=== PATIENT | female | born 1965 | race Caucasian/White ===

== ENCOUNTER → 2017-12-08 | Outpatient (CLI) | payer OTHER, MEDICAID ==
[~2017-12-08] MED LIST: BENZ2TAB58 PO; CABE0.5T2 PO; CARBXR400 PO; FLUP10 PO; LEVO75TA4 PO; LITH600 PO; RAME8TAB8 PO
[2017-12-08 15:53] LABS: BASOPHILS % (AUTO) 1.1 % (0.0-2.0); EOSINOPHILS % (AUTO) 0.6 % (1.0-6.0); HEMATOCRIT 38.6 % (36-46); HEMOGLOBIN 13.1 g/dL (12.0-16.0); LYMPHOCYTES # (AUTO) 0.9 K/uL (1.0-4.8); LYMPHOCYTES % (AUTO) 18.2 % (22.0-44.0); MEAN CORPUSCULAR HEMOGLOBIN 31.9 pg (26.0-34.0); MEAN CORPUSCULAR VOLUME 94 fL (80-100); MONOCYTES # (AUTO) 0.4 K/uL (0.1-1.0); MONOCYTES % (AUTO) 8.5 % (2.0-9.0); NEUTROPHILS # (AUTO) 3.6 K/uL (1.8-7.7); NEUTROPHILS % (AUTO) 71.6 % (40.0-70.0); PLATELET COUNT (AUTO) 297 K/uL (150-450); RED BLOOD CELL COUNT(AUTO) 4.11 MIL/uL (4.00-5.20); RED CELL DISTRIBUTION WIDTH 13.2 % (11.5-14.5)
[2017-12-08 16:01] LABS: HEMOGLOBIN A1C 4.9 % (4.5-6.2)
[2017-12-08 16:02] LABS: LITHIUM 0.73 mmol/L (0.60-1.20)
[2017-12-08 16:24] LABS: ALANINE AMINOTRANSFERASE 16 U/L (12-78); ALBUMIN 3.9 g/dL (3.4-5.0); ALKALINE PHOSPHATASE 157 U/L (46-116); ASPARTATE AMINOTRANSFERASE 13 U/L (15-37); BILIRUBIN,TOTAL 0.4 mg/dL (0.1-1.0); CALCIUM, TOTAL 9.2 mg/dL (8.8-10.5); CARBAMAZEPINE (TEGRETOL) 6.3 mcg/mL (4.0-12.0); CHLORIDE 108 mmol/L (98-107); CHOL/HDL RATIO 2.9 (3.9-5.7); CHOLESTEROL 205 mg/dL (131-200); CREATININE 0.63 mg/dL (0.60-1.30); GLOMERULAR FILTR. RATE CALC > 60 mL/min (>60); GLUCOSE,RANDOM 87 mg/dL (70-110); HDL CHOLESTEROL 70 mg/dL (40-60); LDL CHOL (CALC.) 121 mg/dL (0-130); POTASSIUM 4.7 mmol/L (3.5-5.1); SODIUM SERUM 142 mmol/L (136-145); THYROID STIMULATING HORMONE 1.15 uIU/mL (0.36-3.74); TOTAL PROTEIN, SERUM 6.7 g/dL (6.4-8.2); TRIGLYCERIDES 72 mg/dL (15-150); UREA NITROGEN, BLOOD 7 mg/dL (7-18)
[2017-12-08 16:32] LABS: ANION GAP 7 mmol/L (8-16); CARBON DIOXIDE 27 mmol/L (22-29)
== END | disposition home or self-care (01) ==
LOC: LABMN 09:45
PROVIDERS: ATTEND Psychiatry & Neurology Psychiatry
DX: F25.9 Schizoaffective disorder, unspecified (principal)
CPT/HCPCS: 83036; 84443

== ENCOUNTER → 2017-12-10 | Outpatient (CLI) | payer OTHER, MEDICAID ==
[2017-12-15 15:11] LABS: APPEARANCE,URINE CLEAR (CLEAR); BILIRUBIN,URINE NEGATIVE (NEGATIVE); GLUCOSE, URINE (UA) NEGATIVE (NEGATIVE); KETONES,URINE NEGATIVE (NEGATIVE); OCCULT BLOOD,URINE NEGATIVE (NEGATIVE); PROTEIN,URINE NEGATIVE (NEGATIVE); UROBILINOGEN,URINE 0.2 mg/dL (<=1.0)
[2017-12-15 15:12] LABS: BACTERIA,URINE None Seen /HPF (None Seen); LEUKOCYTE ESTERASE ,URINE SMALL (NEGATIVE); NITRATE,URINE NEGATIVE (NEGATIVE); RBC,URINE None Seen /HPF (0-2); SQUAMOUS EPITHELIAL CELL,UR Rare /LPF (None Seen); WBC,URINE 0-2 /HPF (0-5)
== END | disposition home or self-care (01) ==
LOC: LABMN 11:00
PROVIDERS: ATTEND Psychiatry & Neurology Psychiatry
DX: F25.9 Schizoaffective disorder, unspecified (principal)

== ENCOUNTER → 2018-02-22 | Outpatient (CLI) | payer MEDICARE, MEDICAID | END | disposition home or self-care (01) | LOC: RADPV 14:03 | PROVIDERS: ATTEND Internal Medicine | DX: S92.422A Displaced fracture of distal phalanx of left great toe, initial encounter for closed fracture (principal); M79.89 Other specified soft tissue disorders; X58.XXXA Exposure to other specified factors, initial encounter; Y93.89 Activity, other specified; Y92.89 Other specified places as the place of occurrence of the external cause; Y99.8 Other external cause status ==

== ENCOUNTER → 2018-04-07 | Outpatient (CLI) | payer MEDICARE, MEDICAID | END | disposition home or self-care (01) | LOC: LABMN 11:50 | PROVIDERS: ATTEND Internal Medicine | DX: F25.0 Schizoaffective disorder, bipolar type (principal) | CPT/HCPCS: 80074; 86706; 86708 ==

== ENCOUNTER 2018-05-28 09:20 | Emergency (ER) | payer MEDICARE, MEDICAID ==
[~2018-05-28] VITALS: Ht 170.2 cm; Wt 72.7 kg
[2018-05-28] MEDS ORDERED: METO25 PO (09:41)
[2018-05-28] MEDS ORDERED: LORazepam 1 MG TABLET PO ONE (10:00)
[2018-05-28 12:37] VITALS: BP 136/80
== END 2018-05-28 12:37 | disposition home or self-care (01) ==
LOC: EMS 09:20
DX: F41.9 Anxiety disorder, unspecified (principal); F31.9 Bipolar disorder, unspecified; F20.9 Schizophrenia, unspecified; Z79.899 Other long term (current) drug therapy; Z88.8 Allergy status to other drugs, medicaments and biological substances

== ENCOUNTER 2018-09-11 14:17 | Emergency (ER) | payer MEDICARE, MEDICAID ==
[~2018-09-11] VITALS: Ht 172.7 cm; Wt 88.6 kg
[~2018-09-11 14:17] MED LIST changes: -LEVO75TA4 PO; +METO25 PO
[2018-09-11] MEDS ORDERED: LITHIUM CARBONATE 600 MG CAPSULE PO ONE (15:00)
[2018-09-11 16:00] VITALS: BP 132/73
== END 2018-09-11 16:24 | disposition home or self-care (01) ==
LOC: EMS 14:19
DX: F41.9 Anxiety disorder, unspecified (principal); F25.9 Schizoaffective disorder, unspecified; F31.9 Bipolar disorder, unspecified; I10 Essential (primary) hypertension; Z88.8 Allergy status to other drugs, medicaments and biological substances

== ENCOUNTER → 2018-12-28 | Outpatient (CLI) | payer MEDICARE, MEDICAID ==
[~2018-12-28] MED LIST changes: -CABE0.5T2 PO
== END | disposition home or self-care (01) ==
LOC: LABMN 14:00
PROVIDERS: ATTEND Psychiatry & Neurology Psychiatry
DX: F25.0 Schizoaffective disorder, bipolar type (principal)

== ENCOUNTER → 2019-04-05 | Outpatient (CLI) | payer MEDICARE, MEDICAID ==
[2019-04-07 10:01] LABS: ALANINE AMINOTRANSFERASE 20 U/L (12-78); ALBUMIN 4.1 g/dL (3.4-5.0); ALKALINE PHOSPHATASE 125 U/L (46-116); ANION GAP 7 mmol/L (8-16); ASPARTATE AMINOTRANSFERASE 15 U/L (15-37); BILIRUBIN,TOTAL 0.3 mg/dL (0.1-1.0); CALCIUM, TOTAL 9.4 mg/dL (8.8-10.5); CARBON DIOXIDE 29 mmol/L (22-29); CHLORIDE 102 mmol/L (98-107); CREATININE 0.76 mg/dL (0.60-1.30); GLOMERULAR FILTR. RATE CALC > 60 mL/min (>60); GLUCOSE,RANDOM 109 mg/dL (70-110); HEMOGLOBIN A1C 5.1 % (4.5-6.2); POTASSIUM 4.8 mmol/L (3.5-5.1); SODIUM SERUM 138 mmol/L (136-145); TOTAL PROTEIN, SERUM 6.9 g/dL (6.4-8.2); UREA NITROGEN, BLOOD 12 mg/dL (7-18)
[2019-04-07 10:02] LABS: CARBAMAZEPINE (TEGRETOL) 9.5 mcg/mL (4.0-12.0); CHOL/HDL RATIO 2.8 (3.9-5.7); CHOLESTEROL 179 mg/dL (131-200); HDL CHOLESTEROL 64 mg/dL (40-60); LDL CHOL (CALC.) 89 mg/dL (0-130); LITHIUM 1.08 mmol/L (0.60-1.20); TRIGLYCERIDES 130 mg/dL (15-150)
[2019-04-07 10:44] LABS: HEMOGLOBIN 13.4 g/dL (12.0-16.0); RED BLOOD CELL COUNT(AUTO) 4.21 MIL/uL (4.00-5.20)
[2019-04-07 10:45] LABS: BASOPHILS % (AUTO) 0.7 % (0.0-2.0); EOSINOPHILS % (AUTO) 0.2 % (1.0-6.0); LYMPHOCYTES # (AUTO) 1.4 K/uL (1.0-4.8); LYMPHOCYTES % (AUTO) 23.9 % (22.0-44.0); MEAN CORPUSCULAR HEMOGLOBIN 31.9 pg (26.0-34.0); MEAN CORPUSCULAR HGB CONC 33.5 G/dL (31.0-37.0); MEAN CORPUSCULAR VOLUME 95 fL (80-100); MONOCYTES # (AUTO) 0.5 K/uL (0.1-1.0); MONOCYTES % (AUTO) 7.6 % (2.0-9.0); NEUTROPHILS % (AUTO) 67.6 % (40.0-70.0); PLATELET COUNT (AUTO) 303 K/uL (150-450); RED CELL DISTRIBUTION WIDTH 12.8 % (11.5-14.5)
== END | disposition home or self-care (01) ==
LOC: LABMN 14:53
PROVIDERS: ATTEND Psychiatry & Neurology Psychiatry
DX: F25.9 Schizoaffective disorder, unspecified (principal); I10 Essential (primary) hypertension; Z79.899 Other long term (current) drug therapy
CPT/HCPCS: 83036

== ENCOUNTER → 2019-06-17 | Outpatient (CLI) | payer MEDICARE, MEDICAID ==
[~2019-06-17] MED LIST changes: +GADOBUTROL 1 MMOL/ML 10 ML VIAL IVP ONE
[2019-06-17 12:29] LABS: CREATININE 0.67 mg/dL (0.60-1.30); GLOMERULAR FILTR. RATE CALC > 60 mL/min (>60); UREA NITROGEN, BLOOD 11 mg/dL (7-18)
== END | disposition home or self-care (01) ==
LOC: MSR 11:43
PROVIDERS: ATTEND Psychiatry & Neurology Neurology
DX: G31.9 Degenerative disease of nervous system, unspecified (principal); I99.8 Other disorder of circulatory system; C71.9 Malignant neoplasm of brain, unspecified; G40.89 Other seizures
CPT/HCPCS: 36415; 70553; 82565; 84520; A9585

== ENCOUNTER → 2020-04-17 | Outpatient (CLI) | payer MEDICARE, MEDICAID ==
[~2020-04-17] MED LIST changes: -GADOBUTROL 1 MMOL/ML 10 ML VIAL IVP ONE
[2020-04-17 10:52] LABS: ALANINE AMINOTRANSFERASE 15 U/L (12-78); ASPARTATE AMINOTRANSFERASE 14 U/L (15-37)
== END | disposition home or self-care (01) ==
LOC: LABPV 07:55
PROVIDERS: ATTEND Podiatrist Foot & Ankle Surgery
DX: B35.1 Tinea unguium (principal)
CPT/HCPCS: 84450; 84460

== ENCOUNTER → 2020-04-25 | Outpatient (CLI) | payer MEDICARE, MEDICAID ==
[2020-04-25 15:45] LABS: LITHIUM 1.19 mmol/L (0.60-1.20)
[2020-04-25 16:00] LABS: CALCIUM, TOTAL 9.6 mg/dL (8.8-10.5); CHLORIDE 106 mmol/L (98-107)
[2020-04-25 16:38] LABS: ANION GAP 6 mmol/L (8-16); CARBON DIOXIDE 28 mmol/L (22-29); POTASSIUM 5.3 mmol/L (3.5-5.1); SODIUM SERUM 140 mmol/L (136-145)
[2020-04-25 16:39] LABS: CARBAMAZEPINE (TEGRETOL) 7.1 mcg/mL (4.0-12.0); CREATININE 0.79 mg/dL (0.60-1.30); FREE T4 (FREE THYROXINE) 0.67 ng/dL (0.76-1.46); GLOMERULAR FILTR. RATE CALC > 60 mL/min (>60); GLUCOSE,RANDOM 91 mg/dL (70-110); THYROID STIMULATING HORMONE 1.08 uIU/mL (0.36-3.74); UREA NITROGEN, BLOOD 11 mg/dL (7-18)
== END | disposition home or self-care (01) ==
LOC: LABPV 14:55
PROVIDERS: ATTEND Psychiatry & Neurology Psychiatry
DX: F25.1 Schizoaffective disorder, depressive type (principal); Z79.899 Other long term (current) drug therapy
CPT/HCPCS: 84436; 84439; 84443

== ENCOUNTER → 2020-05-09 | Outpatient (CLI) | payer MEDICARE, MEDICAID | END | disposition home or self-care (01) | LOC: LABPV 13:51 | PROVIDERS: ATTEND Psychiatry & Neurology Psychiatry | DX: F25.1 Schizoaffective disorder, depressive type (principal) | CPT/HCPCS: 84132 ==

== ENCOUNTER → 2020-06-13 | Outpatient (CLI) | payer MEDICARE, MEDICAID ==
[~2020-06-13] MED LIST changes: -FLUP10 PO; +FLUP10TA13 PO; -LITH600 PO; +LITH600C5 PO
[2020-06-13 15:53] LABS: HEMOGLOBIN A1C 5.2 % (3.8-5.6)
[2020-06-13 16:05] LABS: CHOL/HDL RATIO 2.3 (3.9-5.7)
== END | disposition home or self-care (01) ==
LOC: LABPV 11:45
PROVIDERS: ATTEND Psychiatry & Neurology Psychiatry
DX: F25.0 Schizoaffective disorder, bipolar type (principal); B35.1 Tinea unguium; Z79.899 Other long term (current) drug therapy
CPT/HCPCS: 82947; 83036

== ENCOUNTER 2020-09-27 22:32 | Emergency (ER) | payer MEDICARE, MEDICAID ==
[~2020-09-27] VITALS: Ht 167.6 cm; Wt 78.2 kg
[2020-09-28 01:21] LABS: BASOPHILS % (AUTO) 0.6 % (0.0-2.0); EOSINOPHILS % (AUTO) 2.1 % (1.0-6.0); LYMPHOCYTES # (AUTO) 1.3 K/uL (1.0-4.8); MEAN CORPUSCULAR HGB CONC 33.4 G/dL (31.0-37.0); MEAN CORPUSCULAR VOLUME 96 fL (80-100); MONOCYTES # (AUTO) 0.4 K/uL (0.1-1.0); MONOCYTES % (AUTO) 8.7 % (2.0-9.0); NEUTROPHILS # (AUTO) 2.9 K/uL (1.8-7.7); NEUTROPHILS % (AUTO) 61.6 % (40.0-70.0); PLATELET COUNT (AUTO) 234 K/uL (150-450); RED BLOOD CELL COUNT(AUTO) 3.77 MIL/uL (4.00-5.20); RED CELL DISTRIBUTION WIDTH 13.1 % (11.5-14.5)
[2020-09-28 01:28] LABS: ANION GAP 7 mmol/L (8-16); CALCIUM, TOTAL 9.1 mg/dL (8.8-10.5); CARBON DIOXIDE 28 mmol/L (22-29); CHLORIDE 108 mmol/L (98-107); CREATININE 0.85 mg/dL (0.60-1.30); GLOMERULAR FILTR. RATE CALC > 60 mL/min (>60); GLUCOSE,RANDOM 108 mg/dL (70-110); POTASSIUM 4.4 mmol/L (3.5-5.1); SODIUM SERUM 143 mmol/L (136-145); UREA NITROGEN, BLOOD 16 mg/dL (7-18)
[2020-09-28 01:34] LABS: ALANINE AMINOTRANSFERASE 15 U/L (12-78); ALBUMIN 3.3 g/dL (3.4-5.0); ALKALINE PHOSPHATASE 125 U/L (46-116); ASPARTATE AMINOTRANSFERASE 12 U/L (15-37); BILIRUBIN,TOTAL 0.2 mg/dL (0.1-1.0); CREATINE KINASE, TOTAL ONLY 27 U/L (26-192); TOTAL PROTEIN, SERUM 5.9 g/dL (6.4-8.2)
[2020-09-28 03:50] VITALS: BP 105/67
== END 2020-09-28 03:57 | disposition home or self-care (01) ==
LOC: EMS 22:32
DX: R07.89 Other chest pain (principal); R56.9 Unspecified convulsions; F32.9 Major depressive disorder, single episode, unspecified; I10 Essential (primary) hypertension; F31.9 Bipolar disorder, unspecified; Z79.899 Other long term (current) drug therapy
CPT/HCPCS: 71045; 80053; 82550; 83605; 83735; 83880; 84484; 85025; 93005; 99285; 36415-L1; 36415-TC

== ENCOUNTER → 2021-06-05 | Outpatient (CLI) | payer MEDICARE, MEDICAID | END | disposition home or self-care (01) | LOC: LABMN 11:00 | PROVIDERS: ATTEND Psychiatry & Neurology Psychiatry | DX: F25.0 Schizoaffective disorder, bipolar type (principal) | CPT/HCPCS: 80178 ==

== ENCOUNTER → 2021-07-10 | Outpatient (CLI) | payer MEDICARE, MEDICAID ==
[2021-07-10 14:14] LABS: HEMOGLOBIN A1C 5.4 % (3.8-5.6)
[2021-07-10 14:20] LABS: CHOL/HDL RATIO 2.7 (3.9-5.7)
== END | disposition home or self-care (01) ==
LOC: LABPV 13:35
PROVIDERS: ATTEND Psychiatry & Neurology Psychiatry
DX: F25.0 Schizoaffective disorder, bipolar type (principal); Z79.899 Other long term (current) drug therapy
CPT/HCPCS: 80061; 82947; 83036

== ENCOUNTER → 2021-08-14 | Outpatient (CLI) | payer MEDICARE, MEDICAID | END | disposition home or self-care (01) | LOC: LABPV 14:05 | PROVIDERS: ATTEND Psychiatry & Neurology Psychiatry | DX: F25.0 Schizoaffective disorder, bipolar type (principal) | CPT/HCPCS: 80178 ==

== ENCOUNTER → 2021-10-02 | Outpatient (CLI) | payer MEDICARE, MEDICAID ==
[~2021-10-02] MED LIST changes: -FLUP10TA13 PO; +FLUP10TA28 PO
== END | disposition home or self-care (01) ==
LOC: LABMN 11:02
PROVIDERS: ATTEND Psychiatry & Neurology Psychiatry
DX: F25.0 Schizoaffective disorder, bipolar type (principal)
CPT/HCPCS: 80156

== ENCOUNTER 2021-10-06 15:06 | Emergency (ER) | payer MEDICARE, MEDICAID ==
[~2021-10-06] VITALS: Ht 167.6 cm; Wt 77.3 kg
[2021-10-06 15:35] VITALS: BP 122/84
== END 2021-10-06 17:12 | disposition home or self-care (01) ==
LOC: EMS 15:06
DX: F41.9 Anxiety disorder, unspecified (principal); I10 Essential (primary) hypertension; F31.9 Bipolar disorder, unspecified; F20.9 Schizophrenia, unspecified; Z88.8 Allergy status to other drugs, medicaments and biological substances; Z79.899 Other long term (current) drug therapy
CPT/HCPCS: 99283; Z7502

== ENCOUNTER 2021-10-13 09:28 | Emergency (ER) | payer MEDICARE, MEDICAID ==
[~2021-10-13] VITALS: Ht 168.9 cm; Wt 76.4 kg
[2021-10-13] MEDS ORDERED: LORazepam 1 MG TABLET PO ONE (10:45)
[2021-10-13 11:40] LABS: LITHIUM 0.87 mmol/L (0.60-1.20)
[2021-10-13 11:41] LABS: ANION GAP 6 mmol/L (8-16); CALCIUM, TOTAL 8.8 mg/dL (8.8-10.5); CARBON DIOXIDE 28 mmol/L (22-29); CHLORIDE 107 mmol/L (98-107); CREATININE 0.75 mg/dL (0.60-1.30); GLOMERULAR FILTR. RATE CALC > 60 mL/min (>60); GLUCOSE,RANDOM 126 mg/dL (70-110); POTASSIUM 4.2 mmol/L (3.5-5.1); SODIUM SERUM 141 mmol/L (136-145); UREA NITROGEN, BLOOD 8 mg/dL (7-18)
[2021-10-13 11:56] LABS: THYROID STIMULATING HORMONE 0.47 uIU/mL (0.36-3.74)
[2021-10-13 12:45] LABS: APPEARANCE,URINE CLEAR (CLEAR); BILIRUBIN,URINE NEGATIVE (NEGATIVE); GLUCOSE, URINE (UA) NEGATIVE (NEGATIVE); KETONES,URINE NEGATIVE (NEGATIVE); LEUKOCYTE ESTERASE ,URINE NEGATIVE (NEGATIVE); NITRATE,URINE NEGATIVE (NEGATIVE); OCCULT BLOOD,URINE NEGATIVE (NEGATIVE); PROTEIN,URINE NEGATIVE (NEGATIVE); SPECIFIC GRAVITIY, URINE 1.003 (1.003-1.030); UROBILINOGEN,URINE <=1.0 mg/dL (<=1.0)
[2021-10-13 13:07] LABS: BACTERIA,URINE None Seen /HPF (None Seen); RBC,URINE None Seen /HPF (0-2); SQUAMOUS EPITHELIAL CELL,UR None Seen /LPF (None Seen); WBC,URINE None Seen /HPF (0-5)
[2021-10-13 13:16] VITALS: BP 116/73
== END 2021-10-13 13:49 | disposition home or self-care (01) ==
LOC: EMS 09:28
DX: R25.1 Tremor, unspecified (principal); F31.9 Bipolar disorder, unspecified; F41.9 Anxiety disorder, unspecified; I10 Essential (primary) hypertension; F20.9 Schizophrenia, unspecified; Z88.8 Allergy status to other drugs, medicaments and biological substances; Z79.899 Other long term (current) drug therapy
CPT/HCPCS: 80048; 80178; 81001; 84443; 99285

== ENCOUNTER → 2021-12-11 | Outpatient (CLI) | payer MEDICARE, MEDICAID | END | disposition home or self-care (01) | LOC: LABPV 13:26 | PROVIDERS: ATTEND Psychiatry & Neurology Psychiatry | DX: F25.9 Schizoaffective disorder, unspecified (principal) | CPT/HCPCS: 80178 ==

== ENCOUNTER → 2022-06-25 | Outpatient (CLI) | payer MEDICARE, MEDICAID | END | disposition home or self-care (01) | LOC: LABMN 15:44 | PROVIDERS: ATTEND Psychiatry & Neurology Psychiatry | DX: F25.0 Schizoaffective disorder, bipolar type (principal); Z79.899 Other long term (current) drug therapy | CPT/HCPCS: 80061; 80178; 82947; 83036 ==

== ENCOUNTER 2022-07-12 08:09 | Emergency (ER) | payer MEDICARE, MEDICAID ==
[~2022-07-12] VITALS: Ht 167.6 cm; Wt 81.8 kg
[2022-07-12] MEDS ORDERED: ONDANSETRON HCL 4 MG TABLET PO ONE (08:30)
[2022-07-12] MEDS ORDERED: ASPI-1444 PO (08:31)
[2022-07-12] MEDS ORDERED: BENZ1TAB96 PO (08:31)
[2022-07-12] MEDS ORDERED: QUET300T2 PO (08:31)
[2022-07-12] MEDS ORDERED: ALPR-707 PO (08:31)
[2022-07-12] MEDS ORDERED: PARO-38 PO (08:31)
[2022-07-12] MEDS ORDERED: ATOR10TA PO (08:31)
[2022-07-12] MEDS ORDERED: OMEP20 PO (08:31)
[2022-07-12] MEDS ORDERED: FOLI-130 PO (08:31)
[2022-07-12] MEDS ORDERED: ONDA-104 PO (08:31)
[2022-07-12] MEDS ORDERED: FLUP10TA28 PO (08:31)
[2022-07-12] MEDS ORDERED: LITH300C3 PO (08:31)
[2022-07-12] MEDS ORDERED: METO25 PO (08:31)
[2022-07-12] MEDS ORDERED: MONT-35 PO (08:31)
[2022-07-12] MEDS ORDERED: LOSA-381 PO (08:31)
[2022-07-12 08:44] LABS: COVID AG,FIA SOURCE NASAL SWAB
[2022-07-12 08:45] LABS: BASOPHILS % (AUTO) 0.2 % (0.0-2.0); EOSINOPHILS % (AUTO) 0.5 % (1.0-6.0); HEMATOCRIT 42.4 % (36-46); HEMOGLOBIN 14.2 g/dL (12.0-16.0); LYMPHOCYTES # (AUTO) 0.7 K/uL (1.0-4.8); LYMPHOCYTES % (AUTO) 15.4 % (22.0-44.0); MEAN CORPUSCULAR HGB CONC 33.4 G/dL (31.0-37.0); MEAN CORPUSCULAR VOLUME 93 fL (80-100); MONOCYTES # (AUTO) 0.8 K/uL (0.1-1.0); MONOCYTES % (AUTO) 17.5 % (2.0-9.0); NEUTROPHILS # (AUTO) 3.2 K/uL (1.8-7.7); NEUTROPHILS % (AUTO) 66.4 % (40.0-70.0); PLATELET COUNT (AUTO) 307 K/uL (150-450); RED BLOOD CELL COUNT(AUTO) 4.57 MIL/uL (4.00-5.20); RED CELL DISTRIBUTION WIDTH 12.7 % (11.5-14.5)
[2022-07-12 08:55] LABS: CALCIUM, TOTAL 9.6 mg/dL (8.8-10.5); CREATININE 1.31 mg/dL (0.60-1.30); POTASSIUM 3.9 mmol/L (3.5-5.1)
[2022-07-12 09:01] LABS: BILIRUBIN,TOTAL 0.5 mg/dL (0.1-1.0); TOTAL PROTEIN, SERUM 7.6 g/dL (6.4-8.2)
[2022-07-12] MEDS ORDERED: SODIUM CHLORIDE 0.9% 1,000 ML IV ONE (09:15)
[2022-07-12 09:22] LABS: INFLUENZA TYPE A NEGATIVE FOR TYPE A (NEGATIVE); INFLUENZA TYPE B NEGATIVE FOR TYPE B (NEGATIVE)
[2022-07-12 13:19] LABS: CALCIUM, TOTAL 8.8 mg/dL (8.8-10.5); CREATININE 1.04 mg/dL (0.60-1.30); POTASSIUM 3.9 mmol/L (3.5-5.1)
[2022-07-12 13:21] VITALS: BP 97/68
== END 2022-07-12 13:30 | disposition home or self-care (01) ==
LOC: EMS 08:20
DX: K52.9 Noninfective gastroenteritis and colitis, unspecified (principal); E86.0 Dehydration; F41.9 Anxiety disorder, unspecified; F31.9 Bipolar disorder, unspecified; I10 Essential (primary) hypertension; F20.9 Schizophrenia, unspecified; G40.909 Epilepsy, unspecified, not intractable, without status epilepticus; Z88.8 Allergy status to other drugs, medicaments and biological substances; Z20.822 Contact with and (suspected) exposure to COVID-19
CPT/HCPCS: 99283; 96360; 87426; 80053; 85025; 87804; 36415; 80048; Q0162; J7030

== ENCOUNTER → 2022-10-08 | Outpatient (CLI) | payer MEDICARE, MEDICAID ==
[~2022-10-08] MED LIST changes: +ALPR-707 PO; +ASPI-1444 PO; +ATOR10TA PO; +BENZ1TAB84 PO; -BENZ2TAB58 PO; +FOLI-130 PO; +LITH300C3 PO; -LITH600C5 PO; +LOSA-381 PO; +MONT-35 PO; +OMEP20 PO; +ONDA-104 PO; +PARO-38 PO; +QUET300T2 PO
== END | disposition home or self-care (01) ==
LOC: LABMN 09:45
PROVIDERS: ATTEND Podiatrist Foot & Ankle Surgery
DX: S92.812A Other fracture of left foot, initial encounter for closed fracture (principal); S92.902A Unspecified fracture of left foot, initial encounter for closed fracture; M19.072 Primary osteoarthritis, left ankle and foot; M77.8 Other enthesopathies, not elsewhere classified; X58.XXXA Exposure to other specified factors, initial encounter; Y93.89 Activity, other specified; Y92.89 Other specified places as the place of occurrence of the external cause; Y99.8 Other external cause status
CPT/HCPCS: 73630-TC

== ENCOUNTER → 2022-11-11 | Outpatient (CLI) | payer MEDICARE, MEDICAID ==
[2022-11-11 11:07] LABS: CREATININE 0.84 mg/dL (0.60-1.30); GLOMERULAR FILTR. RATE CALC > 60 mL/min (>60)
== END | disposition home or self-care (01) ==
LOC: LABMN 10:15
PROVIDERS: ATTEND Podiatrist Foot & Ankle Surgery
DX: S82.90XA Unspecified fracture of unspecified lower leg, initial encounter for closed fracture (principal); M79.672 Pain in left foot; X58.XXXA Exposure to other specified factors, initial encounter; Y93.89 Activity, other specified; Y92.89 Other specified places as the place of occurrence of the external cause; Y99.8 Other external cause status
CPT/HCPCS: 82565; 84520

== ENCOUNTER 2022-12-22 08:56 | Emergency (ER) | payer MEDICARE, MEDICAID ==
[~2022-12-22] VITALS: Ht 162.6 cm; Wt 70.5 kg
[2022-12-22 09:02] VITALS: TEMP 98
[2022-12-22 11:58] VITALS: BP 100/74; PULSE 76; RESP 18
== END 2022-12-22 12:02 | disposition home or self-care (01) ==
LOC: EMS 08:59
DX: S92.252A Displaced fracture of navicular [scaphoid] of left foot, initial encounter for closed fracture (principal); F41.9 Anxiety disorder, unspecified; F31.9 Bipolar disorder, unspecified; I10 Essential (primary) hypertension; F20.9 Schizophrenia, unspecified; X58.XXXA Exposure to other specified factors, initial encounter; Y93.89 Activity, other specified; Y92.89 Other specified places as the place of occurrence of the external cause; Y99.8 Other external cause status
CPT/HCPCS: 29515; 99283

== ENCOUNTER 2023-07-08 22:41 | Emergency (ER) | payer MEDICARE, MEDICAID, SELFPAY ==
[~2023-07-08] VITALS: Ht 167.6 cm; Wt 75.0 kg
[2023-07-08 23:31] VITALS: TEMP 97.9
[2023-07-09 01:17] LABS: COVID AG,FIA SOURCE NASAL SWAB
[2023-07-09 01:39] LABS: INFLUENZA TYPE A NEGATIVE FOR TYPE A (NEGATIVE); INFLUENZA TYPE B NEGATIVE FOR TYPE B (NEGATIVE); SARS-COV2 (COVID) ANTIGEN,FIA Negative (Negative)
[2023-07-09] MEDS: METOCLOPRAMIDE HCL 10 MG TABLET PO ONE (02:01)
[2023-07-09 02:11] LABS: BASOPHILS % (AUTO) 0.8 % (0.0-2.0); HEMATOCRIT 37.6 % (36-46); HEMOGLOBIN 12.5 g/dL (12.0-16.0); LYMPHOCYTES # (AUTO) 1.5 K/uL (1.0-4.8); LYMPHOCYTES % (AUTO) 21.7 % (22.0-44.0); MEAN CORPUSCULAR HEMOGLOBIN 31.8 pg (26.0-34.0); MEAN CORPUSCULAR HGB CONC 33.3 G/dL (31.0-37.0); MEAN CORPUSCULAR VOLUME 95 fL (80-100); MONOCYTES # (AUTO) 0.5 K/uL (0.1-1.0); MONOCYTES % (AUTO) 7.5 % (2.0-9.0); NEUTROPHILS # (AUTO) 4.8 K/uL (1.8-7.7); PLATELET COUNT (AUTO) 302 K/uL (150-450); RED BLOOD CELL COUNT(AUTO) 3.94 MIL/uL (4.00-5.20); RED CELL DISTRIBUTION WIDTH 12.8 % (11.5-14.5); WHITE BLOOD COUNT (AUTO) 6.9 K/uL (4.5-11.0)
[2023-07-09 02:20] LABS: ANION GAP 7 mmol/L (8-16); CALCIUM, TOTAL 9.7 mg/dL (8.8-10.5); CARBON DIOXIDE 28 mmol/L (22-29); CHLORIDE 107 mmol/L (98-107); CREATININE 0.69 mg/dL (0.60-1.30); GLOMERULAR FILTR. RATE CALC > 60 mL/min (>60); GLUCOSE,RANDOM 118 mg/dL (70-110); SODIUM SERUM 142 mmol/L (136-145); UREA NITROGEN, BLOOD 8 mg/dL (7-18)
[2023-07-09 02:25] LABS: ALANINE AMINOTRANSFERASE 16 U/L (12-78); ALBUMIN 3.6 g/dL (3.4-5.0); ALKALINE PHOSPHATASE 134 U/L (46-116); ASPARTATE AMINOTRANSFERASE 13 U/L (15-37); BILIRUBIN,TOTAL 0.3 mg/dL (0.1-1.0); LIPASE 30 U/L (16-77); TOTAL PROTEIN, SERUM 6.2 g/dL (6.4-8.2)
[2023-07-09 02:27] LABS: TROPONIN I-HIGH SENSITIVITY 11 ng/L (<51)
[2023-07-09] MEDS ORDERED: GOLY4L PO (03:11)
[2023-07-09 03:57] LABS: APPEARANCE,URINE CLEAR (CLEAR); BILIRUBIN,URINE NEGATIVE (NEGATIVE); COLOR,URINE COLORLESS (YELLOW); GLUCOSE, URINE (UA) NEGATIVE (NEGATIVE); KETONES,URINE NEGATIVE (NEGATIVE); LEUKOCYTE ESTERASE ,URINE NEGATIVE (NEGATIVE); NITRATE,URINE NEGATIVE (NEGATIVE); OCCULT BLOOD,URINE NEGATIVE (NEGATIVE); PH,URINE 6.5 (5.0-8.0); PROTEIN,URINE NEGATIVE (NEGATIVE); SPECIFIC GRAVITIY, URINE 1.004 (1.003-1.030); UROBILINOGEN,URINE <=1.0 mg/dL (<=1.0)
[2023-07-09] MEDS: SODIUM PHOSPHATE,MONO-DIBASIC 133 ML ENEMA PR ONE (04:13)
[2023-07-09] MEDS: PROMETHAZINE HCL 25 MG TABLET PO ONE (05:50)
[2023-07-09 07:44] VITALS: BP 122/76; PULSE 72; RESP 16
== END 2023-07-09 09:21 | disposition home or self-care (01) ==
LOC: EMS 22:41
DX: R11.2 Nausea with vomiting, unspecified (principal); R10.9 Unspecified abdominal pain; F41.9 Anxiety disorder, unspecified; F31.9 Bipolar disorder, unspecified; I10 Essential (primary) hypertension; F20.9 Schizophrenia, unspecified; Z88.8 Allergy status to other drugs, medicaments and biological substances; Z20.822 Contact with and (suspected) exposure to COVID-19
CPT/HCPCS: 74022; 80053; 81003; 83690; 84484; 85025; 87804; 99285

== ENCOUNTER 2023-08-02 16:17 | Emergency (ER) | payer MEDICARE, MEDICAID ==
[~2023-08-02] VITALS: Ht 167.6 cm; Wt 79.5 kg
[~2023-08-02 16:17] MED LIST changes: +GOLY4L PO
[2023-08-02 16:59] VITALS: BP 125/87; PULSE 68; RESP 16; TEMP 98
[2023-08-02] MEDS ORDERED: BENZONATATE 100 MG CAPSULE PO ONE (17:15)
== END 2023-08-02 19:55 | disposition home or self-care (01) ==
LOC: EMS 16:18
DX: F41.9 Anxiety disorder, unspecified (principal); R05.9 Cough, unspecified; F31.9 Bipolar disorder, unspecified; I10 Essential (primary) hypertension; F20.9 Schizophrenia, unspecified; Z88.8 Allergy status to other drugs, medicaments and biological substances
CPT/HCPCS: 99283

== ENCOUNTER 2023-10-30 11:25 | Emergency (ER) | payer MEDICARE, MEDICAID ==
[~2023-10-30] VITALS: Ht 170.2 cm; Wt 75.0 kg
[~2023-10-30 11:25] MED LIST changes: -CARBXR400 PO; -GOLY4L PO; -RAME8TAB8 PO
[2023-10-30 11:40] VITALS: TEMP 98.7
[2023-10-30 11:41] VITALS: BP 121/72; PULSE 60; RESP 16
[2023-10-30] MEDS ORDERED: PARO10TA89 PO (11:54)
[2023-10-30] MEDS ORDERED: FISH1CAP27 PO (11:54)
[2023-10-30] MEDS ORDERED: ACET-3385 PO (11:54)
[2023-10-30] MEDS ORDERED: RAME8TAB8 PO (11:54)
[2023-10-30] MEDS ORDERED: FLUP1TAB8 PO (11:54)
[2023-10-30] MEDS ORDERED: ERGO500054 PO (11:54)
[2023-10-30] MEDS ORDERED: ONDA-104 PO (11:54)
[2023-10-30] MEDS ORDERED: EZET10TA57 PO (11:54)
[2023-10-30] MEDS ORDERED: DOCU50LI40 PO (11:54)
[2023-10-30] MEDS ORDERED: FESO4TAB3 PO (11:54)
[2023-10-30] MEDS ORDERED: CARB-92 PO (11:54)
[2023-10-30 12:13] LABS: BASOPHILS % (AUTO) 0.6 % (0.0-2.0); EOSINOPHILS % (AUTO) 1.6 % (1.0-6.0); HEMATOCRIT 36.6 % (36-46); HEMOGLOBIN 12.1 g/dL (12.0-16.0); LYMPHOCYTES # (AUTO) 1.1 K/uL (1.0-4.8); LYMPHOCYTES % (AUTO) 21.8 % (22.0-44.0); MEAN CORPUSCULAR HEMOGLOBIN 31.6 pg (26.0-34.0); MEAN CORPUSCULAR VOLUME 96 fL (80-100); MONOCYTES # (AUTO) 0.4 K/uL (0.1-1.0); MONOCYTES % (AUTO) 7.8 % (2.0-9.0); NEUTROPHILS # (AUTO) 3.4 K/uL (1.8-7.7); NEUTROPHILS % (AUTO) 68.2 % (40.0-70.0); PLATELET COUNT (AUTO) 238 K/uL (150-450); RED BLOOD CELL COUNT(AUTO) 3.82 MIL/uL (4.00-5.20); RED CELL DISTRIBUTION WIDTH 13.1 % (11.5-14.5)
[2023-10-30 12:24] LABS: ANION GAP 9 mmol/L (8-16); CALCIUM, TOTAL 9.2 mg/dL (8.8-10.5); CARBON DIOXIDE 25 mmol/L (22-29); CHLORIDE 110 mmol/L (98-107); CREATININE 0.72 mg/dL (0.60-1.30); GLOMERULAR FILTR. RATE CALC > 60 mL/min (>60); GLUCOSE,RANDOM 99 mg/dL (70-110); POTASSIUM 3.8 mmol/L (3.5-5.1); SODIUM SERUM 144 mmol/L (136-145); UREA NITROGEN, BLOOD 9 mg/dL (7-18)
[2023-10-30 12:27] LABS: ALCOHOL, BLOOD (SERUM) < 3 mg/dL (0-10)
[2023-10-30 12:30] LABS: ALANINE AMINOTRANSFERASE 15 U/L (12-78); ALBUMIN 3.2 g/dL (3.4-5.0); ALKALINE PHOSPHATASE 115 U/L (46-116); ASPARTATE AMINOTRANSFERASE 12 U/L (15-37); BILIRUBIN,TOTAL 0.3 mg/dL (0.1-1.0); TOTAL PROTEIN, SERUM 6.3 g/dL (6.4-8.2)
[2023-10-30 12:45] LABS: AMPHET/METH SCREEN,URINE NEGATIVE (NEGATIVE); BARBITURATE SCREEN, URINE NEGATIVE (NEGATIVE); BENZODIAZEPINES SCREEN,URINE POSITIVE (NEGATIVE); CANNABINOID SCREEN,URINE NEGATIVE (NEGATIVE); COCAINE SCREEN,URINE NEGATIVE (NEGATIVE); METHADONE SCREEN, URINE NEGATIVE (NEGATIVE); OPIATE SCREEN,URINE NEGATIVE (NEGATIVE); PHENCYCLIDINE SCREEN,URINE NEGATIVE (NEGATIVE)
[2023-10-30 12:46] LABS: ALCOHOL, URINE DRUG SCREEN NEGATIVE (NEGATIVE)
[2023-10-30] MEDS: QUEtiapine FUMARATE 25 MG TABLET PO ONE (13:33)
== END 2023-10-30 14:00 | disposition home or self-care (01) ==
LOC: EMS 11:25
DX: F20.9 Schizophrenia, unspecified (principal); I10 Essential (primary) hypertension; F41.9 Anxiety disorder, unspecified; F31.9 Bipolar disorder, unspecified; G40.909 Epilepsy, unspecified, not intractable, without status epilepticus
CPT/HCPCS: 99283; 80053; 85025; 36415; 80307; G0480

== ENCOUNTER 2023-11-09 16:09 | Emergency (ER) | payer MEDICARE, MEDICAID ==
[~2023-11-09] VITALS: Ht 167.6 cm; Wt 68.2 kg
[~2023-11-09 16:09] MED LIST changes: +ACET-3385 PO; +BENZ-247 PO; -BENZ1TAB84 PO; +CARB-92 PO; +DOCU50LI40 PO; +ERGO500054 PO; +EZET10TA57 PO; +FESO4TAB3 PO; +FISH1CAP27 PO; -FLUP10TA28 PO; +FLUP1TAB8 PO; -PARO-38 PO; +PARO10TA89 PO; +RAME8TAB8 PO
[2023-11-09 17:02] VITALS: TEMP 97.8
[2023-11-09] MEDS ORDERED: FLUP10TA8 PO (17:35)
[2023-11-09] MEDS ORDERED: DICL112S3 TP (17:35)
[2023-11-09] MEDS ORDERED: OMEG10005 PO (17:35)
[2023-11-09] MEDS ORDERED: QUET400T13 PO (17:35)
[2023-11-09] MEDS ORDERED: CARB400T3 PO (17:35)
[2023-11-09] MEDS ORDERED: DOCU-412 PO (17:35)
[2023-11-09] MEDS ORDERED: [UNRECOGNIZED DRUG - CODE] PO (17:35)
[2023-11-09] MEDS: PERTUSS(ACELL),DIPH,TET/PF 0.5 ML SYRINGE [ADULT] IM. ONE (18:20)
[2023-11-09 19:00] VITALS: BP 120/76; PULSE 70; RESP 14
== END 2023-11-09 19:13 | disposition home or self-care (01) ==
LOC: EMS 16:14
DX: S01.81XA Laceration without foreign body of other part of head, initial encounter (principal); I10 Essential (primary) hypertension; E78.5 Hyperlipidemia, unspecified; Z88.4 Allergy status to anesthetic agent; W01.0XXA Fall on same level from slipping, tripping and stumbling without subsequent striking against object, initial encounter; Y93.01 Activity, walking, marching and hiking; Y92.89 Other specified places as the place of occurrence of the external cause; Y99.8 Other external cause status
CPT/HCPCS: 90471; 90715; 99283

== ENCOUNTER 2024-01-07 13:35 | Inpatient (IN) | payer MEDICARE, MEDICAID ==
[~2024-01-07] VITALS: Ht 172.7 cm; Wt 64.0 kg
[~2024-01-07 13:35] MED LIST changes: -CARB-92 PO; +CARB400T3 PO; +DICL112S3 TP; +DOCU-412 PO; -DOCU50LI40 PO; -FISH1CAP27 PO; +FLUP10TA8 PO; -FLUP1TAB8 PO; +OMEG10005 PO; -QUET300T2 PO; +QUET400T13 PO; +[UNRECOGNIZED DRUG - CODE] PO
[2024-01-07 15:26] LABS: BASOPHILS % (AUTO) 0.4 % (0.0-2.0); EOSINOPHILS % (AUTO) 0.8 % (1.0-6.0); HEMATOCRIT 37.1 % (36-46); HEMOGLOBIN 12.1 g/dL (12.0-16.0); LYMPHOCYTES # (AUTO) 1.2 K/uL (1.0-4.8); LYMPHOCYTES % (AUTO) 18.1 % (22.0-44.0); MEAN CORPUSCULAR HEMOGLOBIN 31.6 pg (26.0-34.0); MEAN CORPUSCULAR HGB CONC 32.6 G/dL (31.0-37.0); MEAN CORPUSCULAR VOLUME 97 fL (80-100); MONOCYTES # (AUTO) 0.7 K/uL (0.1-1.0); MONOCYTES % (AUTO) 9.7 % (2.0-9.0); NEUTROPHILS # (AUTO) 4.8 K/uL (1.8-7.7); PLATELET COUNT (AUTO) 290 K/uL (150-450); RED BLOOD CELL COUNT(AUTO) 3.83 MIL/uL (4.00-5.20); RED CELL DISTRIBUTION WIDTH 14.1 % (11.5-14.5); WHITE BLOOD COUNT (AUTO) 6.8 K/uL (4.5-11.0)
[2024-01-07 15:36] LABS: ANION GAP 7 mmol/L (8-16); CALCIUM, TOTAL 9.5 mg/dL (8.8-10.5); CARBON DIOXIDE 27 mmol/L (22-29); CHLORIDE 106 mmol/L (98-107); CREATININE 0.78 mg/dL (0.60-1.30); GLOMERULAR FILTR. RATE CALC > 60 mL/min (>60); GLUCOSE,RANDOM 97 mg/dL (70-110); POTASSIUM 4.7 mmol/L (3.5-5.1); SODIUM SERUM 140 mmol/L (136-145); UREA NITROGEN, BLOOD 11 mg/dL (7-18)
[2024-01-07 15:45] LABS: TROPONIN I-HIGH SENSITIVITY 19 ng/L (<51)
[2024-01-07 16:05] LABS: ALCOHOL, BLOOD (SERUM) < 3 mg/dL (0-10); LITHIUM 0.66 mmol/L (0.60-1.20)
[2024-01-07 19:00] LABS: APPEARANCE,URINE TURBID (CLEAR); BILIRUBIN,URINE NEGATIVE (NEGATIVE); COLOR,URINE YELLOW (YELLOW); GLUCOSE, URINE (UA) NEGATIVE (NEGATIVE); KETONES,URINE NEGATIVE (NEGATIVE); LEUKOCYTE ESTERASE ,URINE LARGE (NEGATIVE); NITRATE,URINE NEGATIVE (NEGATIVE); OCCULT BLOOD,URINE SMALL (NEGATIVE); PH,URINE 6.5 (5.0-8.0); PH,URINE DRUG SCREEN 6.5 (5.0-8.0); PROTEIN,URINE 30-70 mg/dL (NEGATIVE); SPECIFIC GRAVITIY, URINE 1.004 (1.003-1.030); UROBILINOGEN,URINE <=1.0 mg/dL (<=1.0)
[2024-01-07 19:13] LABS: ALCOHOL, URINE DRUG SCREEN NEGATIVE (NEGATIVE); AMPHET/METH SCREEN,URINE NEGATIVE (NEGATIVE); BARBITURATE SCREEN, URINE NEGATIVE (NEGATIVE); BENZODIAZEPINES SCREEN,URINE NEGATIVE (NEGATIVE); CANNABINOID SCREEN,URINE NEGATIVE (NEGATIVE); COCAINE SCREEN,URINE NEGATIVE (NEGATIVE); METHADONE SCREEN, URINE NEGATIVE (NEGATIVE); OPIATE SCREEN,URINE NEGATIVE (NEGATIVE); PHENCYCLIDINE SCREEN,URINE NEGATIVE (NEGATIVE)
[2024-01-07 19:16] LABS: BACTERIA,URINE Moderate /HPF (None Seen); WBC,URINE Full Field /HPF (0-5)
[2024-01-07] MEDS: CefTRIAXone 1 GM/DEXTROSE 50 ML IV ONE (19:57)
[2024-01-07] MEDS ORDERED: ACETAMINOPHEN 325 MG TABLET PO PRN (20:45)
[2024-01-07] MEDS ORDERED: BISACODYL 10 MG RECTAL RECTAL SUPPOSITORY PR PRN (20:45)
[2024-01-07] MEDS ORDERED: MAGNESIUM HYDROXIDE SUSPENSION 30 ML UDCUP PO PRN (20:45)
[2024-01-07] MEDS: LOSARTAN POTASSIUM 25 MG TABLET PO SCH (21:00)
[2024-01-07] MEDS: METOPROLOL TARTRATE 25 MG TABLET PO SCH (21:00)
[2024-01-07] MEDS: DOCUSATE SODIUM 100 MG CAPSULE PO SCH (21:00)
[2024-01-07] MEDS: SODIUM CHLORIDE 0.9% 1,000 ML IV ONE (21:12)
[2024-01-07] MEDS: LITHIUM CARBONATE 300 MG CAPSULE PO SCH (21:12)
[2024-01-07 23:39] VITALS: BP 106/76; PULSE 68; RESP 19; TEMP 98.6
[2024-01-08 05:24] VITALS: BP 128/85; PULSE 79; RESP 20; TEMP 97.7
[2024-01-08] MEDS: ONDANSETRON HCL 4 MG/2 ML VIAL IVP PRN (05:30)
[2024-01-08 08:30] VITALS: BP 123/69; PULSE 69; RESP 17; TEMP 98.4
[2024-01-08] MEDS: FOLIC ACID 1 MG TABLET PO SCH (08:37)
[2024-01-08] MEDS: PANTOPRAZOLE SODIUM 40 MG DR TABLET PO SCH (08:37)
[2024-01-08] MEDS: ASPIRIN 81 MG DR TABLET PO SCH (08:38)
[2024-01-08 08:39] LABS: BASOPHILS % (AUTO) 1.1 % (0.0-2.0); EOSINOPHILS % (AUTO) 1.3 % (1.0-6.0); HEMATOCRIT 36.2 % (36-46); LYMPHOCYTES # (AUTO) 0.8 K/uL (1.0-4.8); LYMPHOCYTES % (AUTO) 16.8 % (22.0-44.0); MEAN CORPUSCULAR HGB CONC 33.1 G/dL (31.0-37.0); MEAN CORPUSCULAR VOLUME 97 fL (80-100); MONOCYTES # (AUTO) 0.4 K/uL (0.1-1.0); MONOCYTES % (AUTO) 8.8 % (2.0-9.0); NEUTROPHILS # (AUTO) 3.5 K/uL (1.8-7.7); PLATELET COUNT (AUTO) 274 K/uL (150-450); RED BLOOD CELL COUNT(AUTO) 3.74 MIL/uL (4.00-5.20); RED CELL DISTRIBUTION WIDTH 13.7 % (11.5-14.5); WHITE BLOOD COUNT (AUTO) 4.9 K/uL (4.5-11.0)
[2024-01-08 08:49] LABS: ANION GAP 12 mmol/L (8-16); CALCIUM, TOTAL 8.6 mg/dL (8.8-10.5); CARBON DIOXIDE 23 mmol/L (22-29); CHLORIDE 108 mmol/L (98-107); GLOMERULAR FILTR. RATE CALC > 60 mL/min (>60); GLUCOSE,RANDOM 108 mg/dL (70-110); POTASSIUM 3.7 mmol/L (3.5-5.1); SODIUM SERUM 143 mmol/L (136-145); UREA NITROGEN, BLOOD 5 mg/dL (7-18)
[2024-01-08] MEDS: ATORVASTATIN CALCIUM 10 MG TABLET PO SCH (10:34)
[2024-01-08] MEDS: MONTELUKAST SODIUM 10 MG TABLET PO SCH (10:35)
[2024-01-08] MEDS: EZETIMIBE 10 MG TABLET PO SCH (10:35)
[2024-01-08] MEDS ORDERED: SODIUM CHLORIDE 0.9% 500 ML IV ONE (11:19)
[2024-01-08] MEDS: CefTRIAXone 1 GM/DEXTROSE 50 ML IV SCH (11:21)
[2024-01-08 16:00] VITALS: BP 112/80; PULSE 77; RESP 17; TEMP 98.2
[2024-01-08 20:57] VITALS: BP 132/71; PULSE 71; RESP 20; TEMP 98.2
[2024-01-08] MEDS: CarBAMazepine 200 MG ER TABLET PO SCH (21:01)
[2024-01-09 05:01] VITALS: BP 136/75; PULSE 62; RESP 18; TEMP 98.5
[2024-01-09 08:36] VITALS: BP 135/84; PULSE 78; RESP 18; TEMP 97.6
[2024-01-09 10:41] LABS: BASOPHILS % (AUTO) 0.5 % (0.0-2.0); EOSINOPHILS % (AUTO) 0.6 % (1.0-6.0); HEMATOCRIT 38.9 % (36-46); HEMOGLOBIN 12.8 g/dL (12.0-16.0); LYMPHOCYTES # (AUTO) 0.9 K/uL (1.0-4.8); LYMPHOCYTES % (AUTO) 13.7 % (22.0-44.0); MEAN CORPUSCULAR HEMOGLOBIN 31.7 pg (26.0-34.0); MEAN CORPUSCULAR HGB CONC 32.9 G/dL (31.0-37.0); MEAN CORPUSCULAR VOLUME 96 fL (80-100); MONOCYTES # (AUTO) 0.5 K/uL (0.1-1.0); MONOCYTES % (AUTO) 8.5 % (2.0-9.0); NEUTROPHILS # (AUTO) 4.8 K/uL (1.8-7.7); NEUTROPHILS % (AUTO) 76.7 % (40.0-70.0); PLATELET COUNT (AUTO) 337 K/uL (150-450); RED BLOOD CELL COUNT(AUTO) 4.04 MIL/uL (4.00-5.20); WHITE BLOOD COUNT (AUTO) 6.2 K/uL (4.5-11.0)
[2024-01-09 10:52] LABS: ANION GAP 8 mmol/L (8-16); CARBON DIOXIDE 26 mmol/L (22-29); CHLORIDE 108 mmol/L (98-107); CREATININE 0.76 mg/dL (0.60-1.30); GLOMERULAR FILTR. RATE CALC > 60 mL/min (>60); GLUCOSE,RANDOM 134 mg/dL (70-110); SODIUM SERUM 142 mmol/L (136-145); UREA NITROGEN, BLOOD 10 mg/dL (7-18)
[2024-01-09 15:26] VITALS: BP 110/72; PULSE 74; RESP 18; TEMP 98.8
[2024-01-09] MEDS ORDERED: 0.9% SODIUM CHLORIDE 10 ML SYRINGE IVP PRN (16:45)
[2024-01-09 19:30] VITALS: BP 120/77; PULSE 76; RESP 18; TEMP 98.3
[2024-01-09] MEDS: BENZTROPINE MESYLATE 0.5 MG TABLET PO SCH (21:28)
[2024-01-09] MEDS: PARoxetine HCL 20 MG TABLET PO SCH (21:28)
[2024-01-09] MEDS: RisperiDONE 1 MG TABLET PO SCH (21:28)
[2024-01-09] MEDS: CEPHALEXIN MONOHYDRATE 500 MG CAPSULE PO SCH (21:28)
[2024-01-09] MEDS: ZOLPIDEM TARTRATE 5 MG TABLET PO PRN (21:31)
[2024-01-10 06:09] VITALS: BP 122/74; PULSE 65; RESP 18; TEMP 98.2
[2024-01-10 07:47] LABS: BASOPHILS % (AUTO) 0.4 % (0.0-2.0); EOSINOPHILS % (AUTO) 0.8 % (1.0-6.0); HEMATOCRIT 37.2 % (36-46); HEMOGLOBIN 12.3 g/dL (12.0-16.0); LYMPHOCYTES # (AUTO) 0.7 K/uL (1.0-4.8); MEAN CORPUSCULAR HEMOGLOBIN 32.1 pg (26.0-34.0); MEAN CORPUSCULAR HGB CONC 33.1 G/dL (31.0-37.0); MEAN CORPUSCULAR VOLUME 97 fL (80-100); MONOCYTES # (AUTO) 0.4 K/uL (0.1-1.0); MONOCYTES % (AUTO) 6.8 % (2.0-9.0); NEUTROPHILS # (AUTO) 4.5 K/uL (1.8-7.7); PLATELET COUNT (AUTO) 314 K/uL (150-450); RED BLOOD CELL COUNT(AUTO) 3.83 MIL/uL (4.00-5.20); RED CELL DISTRIBUTION WIDTH 13.6 % (11.5-14.5); WHITE BLOOD COUNT (AUTO) 5.7 K/uL (4.5-11.0)
[2024-01-10 07:50] LABS: ANION GAP 10 mmol/L (8-16); CALCIUM, TOTAL 9.2 mg/dL (8.8-10.5); CARBON DIOXIDE 25 mmol/L (22-29); CHLORIDE 104 mmol/L (98-107); CREATININE 0.77 mg/dL (0.60-1.30); GLOMERULAR FILTR. RATE CALC > 60 mL/min (>60); GLUCOSE,RANDOM 96 mg/dL (70-110); POTASSIUM 3.6 mmol/L (3.5-5.1); SODIUM SERUM 139 mmol/L (136-145); UREA NITROGEN, BLOOD 11 mg/dL (7-18)
[2024-01-10 08:15] VITALS: BP 123/70; PULSE 73; RESP 18; TEMP 98.3
== END 2024-01-10 17:00 | DRG 689 ==
LOC: EMS 13:35 → EDH 20:39 → 4E 22:39
PROVIDERS: ADMIT Internal Medicine; ATTEND Internal Medicine
PROC: GZ56ZZZ Individual Psychotherapy, Supportive (ICD-10-PCS; principal; 2024-01-09)
DX: N39.0 Urinary tract infection, site not specified (principal); G92.8 Other toxic encephalopathy; E44.0 Moderate protein-calorie malnutrition; I10 Essential (primary) hypertension; F20.9 Schizophrenia, unspecified; H26.8 Other specified cataract; G40.909 Epilepsy, unspecified, not intractable, without status epilepticus; G47.00 Insomnia, unspecified; R09.89 Other specified symptoms and signs involving the circulatory and respiratory systems; E78.5 Hyperlipidemia, unspecified; F31.9 Bipolar disorder, unspecified; F41.9 Anxiety disorder, unspecified; R29.6 Repeated falls; Z79.899 Other long term (current) drug therapy; Z68.21 Body mass index [BMI] 21.0-21.9, adult
CPT/HCPCS: 70450; 80048; 80178; 80307; 81001; 84484; 85025; 87086; 87186; 93005; 97116; 97162; 97166; 97530; 97535; 99285; G0378; G0480; J0696; J2405; J7040

== ENCOUNTER 2024-01-21 15:23 | Emergency (ER) | payer MEDICARE, MEDICAID ==
[~2024-01-21] VITALS: Ht 172.7 cm; Wt 57.7 kg
[~2024-01-21 15:23] MED LIST changes: +OMEG100014 PO; -OMEG10005 PO
[2024-01-21 16:08] VITALS: TEMP 98.4
[2024-01-21] MEDS ORDERED: TRAM50TA5 PO (19:48)
[2024-01-21 21:58] VITALS: BP 122/80; PULSE 91; RESP 18; O2SAT 95
== END 2024-01-21 22:06 | disposition home or self-care (01) ==
LOC: EMS 15:25
DX: S42.211A Unspecified displaced fracture of surgical neck of right humerus, initial encounter for closed fracture (principal); F41.9 Anxiety disorder, unspecified; F31.9 Bipolar disorder, unspecified; I10 Essential (primary) hypertension; F20.9 Schizophrenia, unspecified; Z88.8 Allergy status to other drugs, medicaments and biological substances; W01.0XXA Fall on same level from slipping, tripping and stumbling without subsequent striking against object, initial encounter; Y93.89 Activity, other specified; Y92.89 Other specified places as the place of occurrence of the external cause; Y99.8 Other external cause status
CPT/HCPCS: 70450; 72125; 99284

== ENCOUNTER 2024-02-04 15:17 | Emergency (ER) | payer MEDICARE, MEDICAID ==
[~2024-02-04] VITALS: Ht 165.1 cm; Wt 61.4 kg
[~2024-02-04 15:17] MED LIST changes: -ALPR-707 PO; -BENZ-247 PO; -DOCU-412 PO; -ERGO500054 PO; -FESO4TAB3 PO; -FLUP10TA8 PO; +TRAM50TA5 PO; -[UNRECOGNIZED DRUG - CODE] PO
[2024-02-04 17:24] LABS: BASOPHILS % (AUTO) 0.7 % (0.0-2.0); EOSINOPHILS % (AUTO) 2.2 % (1.0-6.0); HEMATOCRIT 36.5 % (36-46); HEMOGLOBIN 12.1 g/dL (12.0-16.0); LYMPHOCYTES # (AUTO) 1.3 K/uL (1.0-4.8); LYMPHOCYTES % (AUTO) 16.4 % (22.0-44.0); MEAN CORPUSCULAR HEMOGLOBIN 32.2 pg (26.0-34.0); MEAN CORPUSCULAR VOLUME 98 fL (80-100); MONOCYTES # (AUTO) 0.6 K/uL (0.1-1.0); MONOCYTES % (AUTO) 7.4 % (2.0-9.0); NEUTROPHILS # (AUTO) 5.9 K/uL (1.8-7.7); NEUTROPHILS % (AUTO) 73.3 % (40.0-70.0); PLATELET COUNT (AUTO) 413 K/uL (150-450); RED BLOOD CELL COUNT(AUTO) 3.74 MIL/uL (4.00-5.20); WHITE BLOOD COUNT (AUTO) 8.1 K/uL (4.5-11.0)
[2024-02-04 17:38] LABS: ANION GAP 7 mmol/L (8-16); CALCIUM, TOTAL 9.3 mg/dL (8.8-10.5); CARBON DIOXIDE 26 mmol/L (22-29); CHLORIDE 109 mmol/L (98-107); GLOMERULAR FILTR. RATE CALC > 60 mL/min (>60); GLUCOSE,RANDOM 105 mg/dL (70-110); POTASSIUM 3.9 mmol/L (3.5-5.1); SODIUM SERUM 142 mmol/L (136-145); UREA NITROGEN, BLOOD 11 mg/dL (7-18)
[2024-02-04] MEDS: ACETAMINOPHEN 325 MG TABLET PO ONE (21:10)
[2024-02-04 21:14] VITALS: BP 114/70; PULSE 69; RESP 18; TEMP 97.7; O2SAT 98
== END 2024-02-04 23:48 | disposition home or self-care (01) ==
LOC: EMS 15:17
DX: S42.211A Unspecified displaced fracture of surgical neck of right humerus, initial encounter for closed fracture (principal); F41.9 Anxiety disorder, unspecified; F31.9 Bipolar disorder, unspecified; I10 Essential (primary) hypertension; F20.9 Schizophrenia, unspecified; Z88.8 Allergy status to other drugs, medicaments and biological substances; W19.XXXA Unspecified fall, initial encounter; Y93.89 Activity, other specified; Y92.89 Other specified places as the place of occurrence of the external cause; Y99.8 Other external cause status
CPT/HCPCS: 70450; 72125; 80048; 85025; 99284

== ENCOUNTER 2024-02-10 17:51 | Inpatient (IN) | payer MEDICARE, MEDICAID ==
[~2024-02-10] VITALS: Ht 167.6 cm; Wt 60.3 kg
[2024-02-10 19:41] LABS: BASOPHILS % (AUTO) 0.6 % (0.0-2.0); EOSINOPHILS % (AUTO) 2.5 % (1.0-6.0); HEMATOCRIT 40.1 % (36-46); HEMOGLOBIN 13.1 g/dL (12.0-16.0); LYMPHOCYTES # (AUTO) 1.2 K/uL (1.0-4.8); LYMPHOCYTES % (AUTO) 18.4 % (22.0-44.0); MEAN CORPUSCULAR HEMOGLOBIN 31.9 pg (26.0-34.0); MEAN CORPUSCULAR HGB CONC 32.5 G/dL (31.0-37.0); MEAN CORPUSCULAR VOLUME 98 fL (80-100); MONOCYTES # (AUTO) 0.5 K/uL (0.1-1.0); MONOCYTES % (AUTO) 7.3 % (2.0-9.0); NEUTROPHILS # (AUTO) 4.8 K/uL (1.8-7.7); NEUTROPHILS % (AUTO) 71.2 % (40.0-70.0); PLATELET COUNT (AUTO) 378 K/uL (150-450); RED BLOOD CELL COUNT(AUTO) 4.09 MIL/uL (4.00-5.20); RED CELL DISTRIBUTION WIDTH 14.2 % (11.5-14.5); WHITE BLOOD COUNT (AUTO) 6.8 K/uL (4.5-11.0)
[2024-02-10 19:50] LABS: ANION GAP 8 mmol/L (8-16); CALCIUM, TOTAL 9.8 mg/dL (8.8-10.5); CARBON DIOXIDE 27 mmol/L (22-29); CHLORIDE 107 mmol/L (98-107); CREATININE 0.71 mg/dL (0.60-1.30); GLOMERULAR FILTR. RATE CALC > 60 mL/min (>60); GLUCOSE,RANDOM 108 mg/dL (70-110); SODIUM SERUM 142 mmol/L (136-145); UREA NITROGEN, BLOOD 12 mg/dL (7-18)
[2024-02-10 19:58] LABS: LITHIUM 1.42 mmol/L (0.60-1.20)
[2024-02-10 20:01] LABS: ALCOHOL, BLOOD (SERUM) < 3 mg/dL (0-10)
[2024-02-10] MEDS: DiphenhydrAMINE HCL 25 MG CAPSULE PO ONE (22:38)
[2024-02-10] MEDS: LORazepam 2 MG TABLET PO ONE (22:38)
[2024-02-10] MEDS: HALOPERIDOL 2 MG TABLET PO ONE (22:38)
[2024-02-11] MEDS: HALOPERIDOL 5 MG TABLET PO PRN (09:14)
[2024-02-11] MEDS: LORazepam 2 MG TABLET PO ONE (09:15)
[2024-02-11] MEDS: RisperiDONE 1 MG TABLET PO ONE (09:24)
[2024-02-11] MEDS: DiphenhydrAMINE HCL 25 MG CAPSULE PO ONE (09:39)
[2024-02-11] MEDS: DIVALPROEX SODIUM 500 MG ER TABLET PO ONE (09:45)
[2024-02-11] MEDS: LORazepam 2 MG TABLET PO PRN (13:27)
[2024-02-11] MEDS: ZIPRASIDONE MESYLATE 20 MG/VIAL IM ONE (19:55)
[2024-02-11 20:55] VITALS: O2SAT 98
[2024-02-11 21:03] LABS: COVID AG,FIA SOURCE NASAL SWAB
[2024-02-11 21:28] LABS: SARS-COV2 (COVID) ANTIGEN,FIA Negative (Negative)
[2024-02-11 23:05] VITALS: BP 105/78; PULSE 100; RESP 18; TEMP 98.3; O2SAT 96
[2024-02-11] MEDS: ZOLPIDEM TARTRATE 10 MG TABLET PO PRN (23:07)
[2024-02-11] MEDS: ACETAMINOPHEN 500 MG TABLET PO PRN (23:08)
[2024-02-11] MEDS ORDERED: PNEUMOCOCCAL VACCINE POLYVALENT 0.5 ML SYRINGE [PPSV23] IM. ONE (23:45)
[2024-02-12 00:05] VITALS: RESP 18
[2024-02-12 08:31] VITALS: BP 103/70; PULSE 83; RESP 18; TEMP 97.1; O2SAT 98
[2024-02-12] MEDS: MONTELUKAST SODIUM 10 MG TABLET PO SCH (08:45)
[2024-02-12] MEDS: EZETIMIBE 10 MG TABLET PO SCH (08:45)
[2024-02-12] MEDS: ATORVASTATIN CALCIUM 10 MG TABLET PO SCH (08:49)
[2024-02-12] MEDS: FOLIC ACID 1 MG TABLET PO SCH (08:49)
[2024-02-12] MEDS: ASPIRIN 81 MG DR TABLET PO SCH (08:49)
[2024-02-12] MEDS: METOPROLOL TARTRATE 25 MG TABLET PO SCH (08:49)
[2024-02-12] MEDS: TraMADol HCL 50 MG TABLET PO PRN (08:49)
[2024-02-12] MEDS ORDERED: OLANZapine 5 MG RAPDIS TABLET PO PRN (09:15)
[2024-02-12] MEDS ORDERED: GuaiFENesin/D-METHORPHAN [SUGAR-FREE] 200-20MG/10 ML SYRUP UDCUP PO PRN (09:15)
[2024-02-12] MEDS ORDERED: LOPERAMIDE HCL 2 MG CAPSULE PO PRN (09:15)
[2024-02-12] MEDS ORDERED: MAGNESIUM HYDROXIDE SUSPENSION 30 ML UDCUP PO PRN (09:15)
[2024-02-12] MEDS ORDERED: MAG HYDROX/ALUMINUM HYD/SIMETH ES 30 ML SUSPENSION UDCUP PO PRN (09:15)
[2024-02-12] MEDS ORDERED: HydrOXYzine PAMOATE 50 MG CAPSULE PO PRN (09:15)
[2024-02-12] MEDS ORDERED: TUBERCULIN, PURIFIED PROTEIN DERIVATIVE 5 TU/0.1 ML SYRINGE ID ONE (09:15)
[2024-02-12] MEDS: BENZTROPINE MESYLATE 1 MG TABLET PO SCH (16:10)
[2024-02-12] MEDS: RisperiDONE 1 MG TABLET PO PRN (16:16)
[2024-02-12] MEDS: THIAMINE 100 MG TABLET PO SCH (16:16)
[2024-02-12 16:24] VITALS: BP 110/69; PULSE 84; RESP 18; O2SAT 97
[2024-02-12] MEDS: LOSARTAN POTASSIUM 25 MG TABLET PO SCH (20:36)
[2024-02-12] MEDS: MELATONIN 5 MG TABLET PO SCH (20:39)
[2024-02-12] MEDS: RisperiDONE 2 MG TABLET PO SCH (20:40)
[2024-02-12] MEDS: DIVALPROEX SODIUM 500 MG ER TABLET PO SCH (20:40)
[2024-02-12] MEDS ORDERED: OLANZapine 5 MG RAPDIS TABLET PO SCH (21:00)
[2024-02-12 22:13] VITALS: BP 100/65; PULSE 69; RESP 18; TEMP 96.7; O2SAT 96
[2024-02-13] MEDS: SULFAMETHOX/TRIMETH DS 800-160 MG/TABLET PO SCH (08:21)
[2024-02-13] MEDS: OMEGA-3/DHA/EPA/FISH OIL 1,000 MG CAPSULE PO SCH (08:21)
[2024-02-13] MEDS: CEPHALEXIN MONOHYDRATE 500 MG CAPSULE PO SCH (08:21)
[2024-02-13] MEDS: PARoxetine HCL 10 MG TABLET PO SCH (08:22)
[2024-02-13] MEDS: RisperiDONE 1 MG TABLET PO SCH (08:23)
[2024-02-13] MEDS: MULTIVITAMINS WITH MINERALS, THERAPEUTIC TABLET PO SCH (08:24)
[2024-02-13 08:27] LABS: HEMOGLOBIN A1C 5.1 % (3.8-5.6)
[2024-02-13 08:31] LABS: CHOL/HDL RATIO 2.3 (3.9-5.7); FREE T4 (FREE THYROXINE) 1.09 ng/dL (0.76-1.46); THYROID STIMULATING HORMONE 0.8 uIU/mL (0.36-3.74)
[2024-02-13 08:46] VITALS: BP 107/70; PULSE 70; RESP 17; TEMP 98; O2SAT 95
[2024-02-13] MEDS ORDERED: FOLIC ACID 1 MG TABLET PO SCH (09:00)
[2024-02-13] MEDS: CarBAMazepine 200 MG TABLET PO SCH (16:18)
[2024-02-13 16:21] VITALS: BP 104/67; PULSE 82; RESP 18
[2024-02-13 21:20] VITALS: BP 108/70; PULSE 72; RESP 16; TEMP 98.2; O2SAT 98
[2024-02-13] MEDS: ACETAMINOPHEN 325 MG TABLET PO PRN (21:24)
[2024-02-13 21:48] VITALS: BP 110/69; PULSE 75; RESP 18; TEMP 98; O2SAT 96
[2024-02-13 22:24] VITALS: RESP 18
[2024-02-14] VITALS (8 sets, daily range): BP systolic 95–102; BP diastolic 60–68; PULSE 70–102; RESP 18; TEMP 97.4–97.9; O2SAT 95–97
[2024-02-14] MEDS: BACITRACIN 28 GM OINTMENT TP SCH (10:15)
[2024-02-15 13:05] VITALS: BP 98/71; PULSE 70; RESP 17; TEMP 98.3
[2024-02-15] MEDS: RisperiDONE 1 MG TABLET PO SCH (18:28)
[2024-02-15 20:59] VITALS: BP 90/63; PULSE 74; RESP 18; TEMP 98.1
[2024-02-15 21:00] VITALS: BP 90/63; PULSE 74; RESP 18; TEMP 98.1; O2SAT 97
[2024-02-15 22:04] VITALS: RESP 18
[2024-02-16 09:45] VITALS: BP 103/64; PULSE 71; RESP 19; TEMP 98; O2SAT 96
[2024-02-16 17:33] VITALS: BP 111/64; PULSE 74; RESP 18; O2SAT 97
[2024-02-16 21:11] VITALS: BP 99/62; PULSE 70; RESP 18; TEMP 97.9; O2SAT 96
[2024-02-17 08:38] VITALS: BP 88/58; PULSE 69; RESP 18; TEMP 96.5; O2SAT 95
[2024-02-17 14:12] VITALS: BP 83/57; PULSE 82; RESP 18
[2024-02-17 15:30] VITALS: RESP 17
[2024-02-17 21:00] VITALS: BP 88/60; PULSE 75; RESP 18; TEMP 97.5; O2SAT 95
[2024-02-17] MEDS: RisperiDONE 3 MG TABLET PO SCH (21:14)
[2024-02-18 06:45] VITALS: BP 100/66; PULSE 86; RESP 16; TEMP 97.7; O2SAT 95
[2024-02-18] MEDS: PROMETHAZINE HCL 25 MG TABLET PO PRN (08:23)
[2024-02-18] MEDS: METOPROLOL TARTRATE 25 MG TABLET PO SCH (09:00)
[2024-02-18 09:11] VITALS: BP 95/57; PULSE 83; RESP 18; TEMP 98; O2SAT 96
[2024-02-18 16:48] VITALS: BP 106/71; PULSE 95
[2024-02-18] MEDS: LOSARTAN POTASSIUM 25 MG TABLET PO SCH (20:53)
[2024-02-18] MEDS: RisperiDONE 2 MG TABLET PO SCH (20:55)
[2024-02-18] MEDS ORDERED: RISP-32 PO (21:52)
[2024-02-18] MEDS ORDERED: OMEG100033 PO (21:52)
[2024-02-18] MEDS ORDERED: MELA5TAB40 PO (21:52)
[2024-02-18] MEDS ORDERED: CARB-92 PO (21:52)
[2024-02-18] MEDS ORDERED: RISP-31 PO (21:52)
[2024-02-18] MEDS ORDERED: PARO10TA71 PO (21:52)
[2024-02-18] MEDS ORDERED: BENZ-247 PO (21:52)
[2024-02-18] MEDS ORDERED: DIVA-153 PO (21:52)
[2024-02-18 21:55] VITALS: BP 106/71; PULSE 80; RESP 18; TEMP 97.6; O2SAT 97
[2024-02-19 04:27] VITALS: BP 110/55; PULSE 92; RESP 18; TEMP 98.2; O2SAT 98
[2024-02-19 05:31] VITALS: RESP 18
[2024-02-19 10:34] VITALS: BP 102/66; PULSE 105; RESP 20; TEMP 98.4; O2SAT 98
[2024-02-19 20:12] VITALS: BP 93/58; PULSE 70; RESP 20; TEMP 98.1; O2SAT 98
[2024-02-20 10:55] VITALS: RESP 18
[2024-02-20] MEDS: TraMADol HCL 50 MG TABLET PO ONE (10:55)
[2024-02-20 11:47] VITALS: BP 85/58; PULSE 72; RESP 18; TEMP 97.7; O2SAT 97
[2024-02-20 11:55] VITALS: RESP 18
[2024-02-20 18:35] VITALS: BP 104/68; PULSE 88; RESP 18
[2024-02-20 20:42] VITALS: BP 111/71; PULSE 79; RESP 18; TEMP 97.5; O2SAT 95
[2024-02-21 09:42] VITALS: BP 102/67; PULSE 85; RESP 18; TEMP 97.7; O2SAT 99
[2024-02-21 16:51] VITALS: BP 108/63; PULSE 89; RESP 20; O2SAT 98
[2024-02-21 21:11] VITALS: BP 116/69; PULSE 77; RESP 18; TEMP 97.8; O2SAT 100
[2024-02-22 09:56] VITALS: BP 125/80; PULSE 84; RESP 18; TEMP 97; O2SAT 95
[2024-02-22 11:18] VITALS: BP 120/80; PULSE 80; RESP 18; TEMP 97.2; O2SAT 100
[2024-02-22 12:18] VITALS: BP 118/80; PULSE 80; RESP 18; TEMP 98; O2SAT 100
[2024-02-22 16:53] VITALS: BP 129/80; RESP 18; O2SAT 100
[2024-02-22 20:54] VITALS: BP 124/79; PULSE 71; RESP 18; TEMP 97.6; O2SAT 97
[2024-02-23 08:54] VITALS: BP 90/65; PULSE 99; RESP 18; TEMP 97.6; O2SAT 96
== END 2024-02-23 14:56 | DRG 885 ==
LOC: EMS 17:53 → 3EI 02-11 22:01 → 3EX 02-11 22:14
PROVIDERS: ADMIT Psychiatry & Neurology Psychiatry; ATTEND Psychiatry & Neurology Psychiatry
PROC: GZHZZZZ Group Psychotherapy (ICD-10-PCS; principal; 2024-02-12)
PROC: GZ58ZZZ Individual Psychotherapy, Cognitive-Behavioral (ICD-10-PCS; 2024-02-12)
DX: F25.9 Schizoaffective disorder, unspecified (principal); G93.41 Metabolic encephalopathy; E44.0 Moderate protein-calorie malnutrition; E78.5 Hyperlipidemia, unspecified; I10 Essential (primary) hypertension; G40.909 Epilepsy, unspecified, not intractable, without status epilepticus; F31.9 Bipolar disorder, unspecified; Z20.822 Contact with and (suspected) exposure to COVID-19; F94.0 Selective mutism; G47.00 Insomnia, unspecified; H54.7 Unspecified visual loss; F41.9 Anxiety disorder, unspecified; Z68.21 Body mass index [BMI] 21.0-21.9, adult; Z88.8 Allergy status to other drugs, medicaments and biological substances
CPT/HCPCS: 80048; 80061; 80156; 80178; 83036; 84439; 84443; 85025; 87081; 96372; 99285; G0378; G0480; J3486

== ENCOUNTER 2024-11-07 13:04 | Inpatient (IN) | payer MEDICAID, MEDICARE ==
[~2024-11-07] VITALS: Ht 172.7 cm; Wt 56.4 kg
[~2024-11-07 13:04] MED LIST changes: -ACET-3385 PO; +ACET-784 PO; +ALBU2.5V39 NEB; +AMIL5TAB8 PO; +AMIO200T73 PO; +APIX5TAB PO; -ASPI-1444 PO; +BISA-151 PO; +CARB-92 PO; -CARB400T3 PO; +CHOL25TA4 PO; -DICL112S3 TP; +IPRA0.2S49 NEB; -LITH300C3 PO; -LOSA-381 PO; +MAGN-169 PO; +MELA5TAB40 PO; -METO25 PO; +MULT-14 PO; +NA P133E4 PR; -OMEG100014 PO; -OMEP20 PO; -ONDA-104 PO; -PARO10TA89 PO; -QUET400T13 PO; -RAME8TAB8 PO; +RISP-31 PO; +RISP0.5T80 PO; -TRAM50TA5 PO
[2024-11-07 13:50] LABS: BASOPHILS % (AUTO) 0.9 % (0.0-2.0); EOSINOPHILS % (AUTO) 2.2 % (1.0-6.0); HEMOGLOBIN 12.5 g/dL (12.0-16.0); LYMPHOCYTES # (AUTO) 1.3 K/uL (1.0-4.8); LYMPHOCYTES % (AUTO) 32.7 % (22.0-44.0); MEAN CORPUSCULAR HGB CONC 33.8 G/dL (31.0-37.0); MEAN CORPUSCULAR VOLUME 95 fL (80-100); MONOCYTES # (AUTO) 0.4 K/uL (0.1-1.0); MONOCYTES % (AUTO) 9.1 % (2.0-9.0); NEUTROPHILS # (AUTO) 2.2 K/uL (1.8-7.7); NEUTROPHILS % (AUTO) 55.1 % (40.0-70.0); PLATELET COUNT (AUTO) 239 K/uL (150-450); RED BLOOD CELL COUNT(AUTO) 3.91 MIL/uL (4.00-5.20); RED CELL DISTRIBUTION WIDTH 12.9 % (11.5-14.5); WHITE BLOOD COUNT (AUTO) 3.9 K/uL (4.5-11.0)
[2024-11-07 14:06] LABS: ANION GAP 6 mmol/L (8-16); CALCIUM, TOTAL 8.9 mg/dL (8.8-10.5); CARBON DIOXIDE 27 mmol/L (22-29); CHLORIDE 108 mmol/L (98-107); CREATININE 0.74 mg/dL (0.60-1.30); GLOMERULAR FILTR. RATE CALC > 60 mL/min (>60); GLUCOSE,RANDOM 146 mg/dL (70-110); SODIUM SERUM 141 mmol/L (136-145); UREA NITROGEN, BLOOD 13 mg/dL (7-18)
[2024-11-07] MEDS ORDERED: PROMETHAZINE HCL 25 MG TABLET PO PRN (14:15)
[2024-11-07] MEDS ORDERED: MAG HYDROX/ALUMINUM HYD/SIMETH ES 30 ML SUSPENSION UDCUP PO PRN (14:15)
[2024-11-07] MEDS ORDERED: GuaiFENesin/D-METHORPHAN [SUGAR-FREE] 200-20MG/10 ML SYRUP UDCUP PO PRN (14:15)
[2024-11-07] MEDS ORDERED: MAGNESIUM HYDROXIDE SUSPENSION 30 ML UDCUP PO PRN (14:15)
[2024-11-07] MEDS ORDERED: RISP3TAB35 PO (14:42)
[2024-11-07] MEDS ORDERED: VALP250S27 PO (14:42)
[2024-11-07] MEDS: HYDROCODONE/ACETAMINOPHEN 5-325 MG TABLET PO ONE (14:44)
[2024-11-07] MEDS: LORazepam 2 MG TABLET PO PRN (14:44)
[2024-11-07 15:07] LABS: COVID AG,FIA SOURCE NASAL SWAB
[2024-11-07] MEDS: RisperiDONE 0.5 MG TABLET PO SCH (16:12)
[2024-11-07] MEDS: BENZTROPINE MESYLATE 0.5 MG TABLET PO SCH (16:13)
[2024-11-07 16:36] LABS: SARS-COV2 (COVID) ANTIGEN,FIA Negative (Negative)
[2024-11-07] MEDS: DIVALPROEX SODIUM 500 MG ER TABLET PO SCH (20:29)
[2024-11-07] MEDS: RisperiDONE 1 MG TABLET PO SCH (20:29)
[2024-11-07] MEDS: MELATONIN 5 MG TABLET PO SCH (20:29)
[2024-11-07] MEDS: THIAMINE 100 MG TABLET PO SCH (20:30)
[2024-11-07] MEDS: CarBAMazepine 200 MG TABLET PO SCH (20:30)
[2024-11-07] MEDS: ACETAMINOPHEN 325 MG TABLET PO PRN (20:30)
[2024-11-07] MEDS: ZOLPIDEM TARTRATE 10 MG TABLET PO PRN (23:16)
[2024-11-07 23:34] LABS: APPEARANCE,URINE HAZY (CLEAR); BILIRUBIN,URINE NEGATIVE (NEGATIVE); COLOR,URINE LIGHT YELLOW (YELLOW); GLUCOSE, URINE (UA) NEGATIVE (NEGATIVE); KETONES,URINE NEGATIVE (NEGATIVE); LEUKOCYTE ESTERASE ,URINE LARGE (NEGATIVE); NITRATE,URINE NEGATIVE (NEGATIVE); OCCULT BLOOD,URINE SMALL (NEGATIVE); PH,URINE 6.5 (5.0-8.0); PH,URINE DRUG SCREEN 6.5 (5.0-8.0); PROTEIN,URINE NEGATIVE (NEGATIVE); SPECIFIC GRAVITIY, URINE 1.006 (1.003-1.030); UROBILINOGEN,URINE <=1.0 mg/dL (<=1.0)
[2024-11-07 23:42] LABS: AMPHET/METH SCREEN,URINE NEGATIVE (NEGATIVE); BARBITURATE SCREEN, URINE NEGATIVE (NEGATIVE); BENZODIAZEPINES SCREEN,URINE NEGATIVE (NEGATIVE); CANNABINOID SCREEN,URINE NEGATIVE (NEGATIVE); COCAINE SCREEN,URINE NEGATIVE (NEGATIVE); METHADONE SCREEN, URINE NEGATIVE (NEGATIVE); OPIATE SCREEN,URINE POSITIVE (NEGATIVE); PHENCYCLIDINE SCREEN,URINE NEGATIVE (NEGATIVE)
[2024-11-07 23:46] LABS: ALCOHOL, URINE DRUG SCREEN NEGATIVE (NEGATIVE)
[2024-11-07 23:55] LABS: BACTERIA,URINE Many /HPF (None Seen); SQUAMOUS EPITHELIAL CELL,UR Few /LPF (None Seen); WBC,URINE >100 /HPF (0-5)
[2024-11-08] MEDS: NITROFURANTOIN MONOHYD/M-CRYST 100 MG CAPSULE [MACROBID] PO ONE (00:52)
[2024-11-08 06:28] LABS: HEMOGLOBIN A1C 5.2 % (3.8-5.6)
[2024-11-08 06:31] LABS: CARBAMAZEPINE (TEGRETOL) 9.4 mcg/mL (4.0-12.0); CHOL/HDL RATIO 1.9 (3.9-5.7)
[2024-11-08] MEDS: MULTIVITAMINS WITH MINERALS, THERAPEUTIC TABLET PO SCH (08:09)
[2024-11-08] MEDS: PARoxetine HCL 20 MG TABLET PO SCH (08:10)
[2024-11-08] MEDS: FOLIC ACID 1 MG TABLET PO SCH (08:10)
[2024-11-08 11:00] VITALS: O2SAT 98
[2024-11-08] MEDS: DOXYLAMINE SUCCINATE 25 MG TABLET PO ONE (13:51)
[2024-11-08 14:00] VITALS: BP 126/87; PULSE 73; RESP 18; TEMP 97.5; O2SAT 97
[2024-11-08] MEDS: HydrOXYzine PAMOATE 50 MG CAPSULE PO PRN (18:56)
[2024-11-08 18:57] VITALS: BP 131/82; PULSE 71; RESP 17; TEMP 98
[2024-11-08 21:48] VITALS: BP 112/83; PULSE 72; RESP 19; TEMP 97.8; O2SAT 99
[2024-11-08] MEDS: ATORVASTATIN CALCIUM 10 MG TABLET PO SCH (22:52)
[2024-11-09] MEDS: LOPERAMIDE HCL 2 MG CAPSULE PO PRN (03:26)
[2024-11-09] MEDS: AMIODARONE HCL 200 MG TABLET PO SCH (08:38)
[2024-11-09] MEDS: AMILoride HCL 5 MG TABLET PO SCH (08:38)
[2024-11-09] MEDS: EZETIMIBE 10 MG TABLET PO SCH (08:39)
[2024-11-09] MEDS: MONTELUKAST SODIUM 10 MG TABLET PO SCH (08:39)
[2024-11-09] MEDS: NITROFURANTOIN MONOHYD/M-CRYST 100 MG CAPSULE [MACROBID] PO SCH (08:39)
[2024-11-09] MEDS: BENZTROPINE MESYLATE 0.5 MG TABLET PO SCH (08:39)
[2024-11-09] MEDS: APIXABAN 5 MG TABLET PO SCH (08:39)
[2024-11-09] MEDS: OMEGA-3/DHA/EPA/FISH OIL 500 MG CAPSULE PO SCH (08:39)
[2024-11-09] MEDS: CHOLECALCIFEROL (VIT D3) 1,000 UNITS [25 MCG] TABLET PO SCH (08:42)
[2024-11-09] MEDS: THIAMINE 100 MG TABLET PO SCH (08:43)
[2024-11-09] MEDS: RisperiDONE 1 MG TABLET PO PRN (08:49)
[2024-11-09 11:21] VITALS: BP 113/70; PULSE 69; RESP 14; TEMP 98.6; O2SAT 96
[2024-11-09] MEDS ORDERED: NITR-104 PO (11:53)
[2024-11-09] MEDS ORDERED: MELA5TAB40 PO (21:36)
[2024-11-09] MEDS ORDERED: CARB-92 PO (21:36)
[2024-11-09] MEDS ORDERED: RISP0.5T80 PO (21:36)
[2024-11-09] MEDS ORDERED: PARO-37 PO (21:36)
[2024-11-09] MEDS ORDERED: BENZ0.5T52 PO (21:36)
[2024-11-09] MEDS ORDERED: RISP-31 PO (21:36)
[2024-11-09] MEDS ORDERED: DIVA-153 PO (21:36)
[2024-11-09 22:03] VITALS: BP 105/68; PULSE 78; RESP 18; TEMP 97.9; O2SAT 98
[2024-11-09 23:03] VITALS: RESP 18
[2024-11-10 04:47] VITALS: RESP 18
[2024-11-10 05:57] VITALS: RESP 18
[2024-11-10] MEDS ORDERED: THIA100T80 PO (11:52)
[2024-11-10] MEDS ORDERED: MULT-1303 PO (11:53)
[2024-11-10] MEDS ORDERED: OMEG-126 PO (11:57)
[2024-11-10 14:52] VITALS: BP 116/79; PULSE 68; RESP 18; TEMP 97.3; O2SAT 96
== END 2024-11-10 15:18 | DRG 885 ==
LOC: EMS 13:04 → EDH 14:15 → 3EX 11-08 14:11
PROVIDERS: ADMIT Psychiatry & Neurology Psychiatry; ATTEND Psychiatry & Neurology Psychiatry
PROC: GZHZZZZ Group Psychotherapy (ICD-10-PCS; principal; 2024-11-08)
PROC: GZ58ZZZ Individual Psychotherapy, Cognitive-Behavioral (ICD-10-PCS; 2024-11-08)
PROC: GZ56ZZZ Individual Psychotherapy, Supportive (ICD-10-PCS; 2024-11-08)
DX: F25.9 Schizoaffective disorder, unspecified (principal); R45.851 Suicidal ideations; N39.0 Urinary tract infection, site not specified; E78.5 Hyperlipidemia, unspecified; F31.9 Bipolar disorder, unspecified; H26.9 Unspecified cataract; H54.8 Legal blindness, as defined in USA; I10 Essential (primary) hypertension; F41.9 Anxiety disorder, unspecified; I48.91 Unspecified atrial fibrillation; G40.909 Epilepsy, unspecified, not intractable, without status epilepticus; G89.29 Other chronic pain; Z20.822 Contact with and (suspected) exposure to COVID-19; K21.9 Gastro-esophageal reflux disease without esophagitis; Z55.9 Problems related to education and literacy, unspecified; Z59.9 Problem related to housing and economic circumstances, unspecified; Z63.9 Problem related to primary support group, unspecified; Z65.3 Problems related to other legal circumstances; Z87.891 Personal history of nicotine dependence; Z88.4 Allergy status to anesthetic agent; Z79.899 Other long term (current) drug therapy; Z91.51 Personal history of suicidal behavior
CPT/HCPCS: 80048; 80061; 80156; 80164; 80307; 81001; 83036; 85025; 87077; 87086; 87186; 99285; G0378; G0480

== ENCOUNTER 2024-12-30 11:38 | Inpatient (IN) | payer MEDICARE, MEDICAID ==
[~2024-12-30] VITALS: Ht 172.7 cm; Wt 52.8 kg
[~2024-12-30 11:38] MED LIST changes: -ACET-784 PO; -ALBU2.5V39 NEB; +BENZ0.5T52 PO; -BISA-151 PO; +DIVA-153 PO; -IPRA0.2S49 NEB; -MAGN-169 PO; +MULT-1303 PO; -MULT-14 PO; -NA P133E4 PR; +NITR-104 PO; +OMEG-287 PO; +PARO-37 PO; +THIA100T80 PO
[2024-12-30 12:39] LABS: COVID AG,FIA SOURCE NASAL SWAB
[2024-12-30 12:39] LABS: PLATELET COUNT (AUTO) 230 K/uL (150-450); RED BLOOD CELL COUNT(AUTO) 4.27 MIL/uL (4.00-5.20); RED CELL DISTRIBUTION WIDTH 13.7 % (11.5-14.5); WHITE BLOOD COUNT (AUTO) 4.7 K/uL (4.5-11.0)
[2024-12-30 12:46] LABS: CALCIUM, TOTAL 9.1 mg/dL (8.8-10.5); CREATININE 0.60 mg/dL (0.60-1.30); GLOMERULAR FILTR. RATE CALC > 60 mL/min (>60); GLUCOSE,RANDOM 95 mg/dL (70-110); SODIUM SERUM 143 mmol/L (136-145); UREA NITROGEN, BLOOD 20 mg/dL (7-18)
[2024-12-30 13:00] LABS: SARS-COV2 (COVID) ANTIGEN,FIA Negative (Negative)
[2024-12-30] MEDS ORDERED: OLANZapine 5 MG RAPDIS TABLET PO PRN (13:00)
[2024-12-30] MEDS ORDERED: ZOLPIDEM TARTRATE 5 MG TABLET PO PRN (13:00)
[2024-12-30 13:45] LABS: APPEARANCE,URINE CLEAR (CLEAR); GLUCOSE, URINE (UA) NEGATIVE (NEGATIVE); LEUKOCYTE ESTERASE ,URINE MODERATE (NEGATIVE); NITRATE,URINE POSITIVE (NEGATIVE); OCCULT BLOOD,URINE NEGATIVE (NEGATIVE); PH,URINE DRUG SCREEN 6.0 (5.0-8.0); SPECIFIC GRAVITIY, URINE 1.010 (1.003-1.030)
[2024-12-30 13:50] LABS: ALCOHOL, URINE DRUG SCREEN NEGATIVE (NEGATIVE); AMPHET/METH SCREEN,URINE NEGATIVE (NEGATIVE); BARBITURATE SCREEN, URINE NEGATIVE (NEGATIVE); CANNABINOID SCREEN,URINE NEGATIVE (NEGATIVE); COCAINE SCREEN,URINE NEGATIVE (NEGATIVE); METHADONE SCREEN, URINE NEGATIVE (NEGATIVE)
[2024-12-30 14:37] LABS: SQUAMOUS EPITHELIAL CELL,UR Rare /LPF (None Seen)
[2024-12-30 14:56] VITALS: O2SAT 95
[2024-12-30 17:12] VITALS: BP 119/92; PULSE 98; RESP 16; TEMP 98; O2SAT 96
[2024-12-30] MEDS ORDERED: MAG HYDROX/ALUMINUM HYD/SIMETH ES 30 ML SUSPENSION UDCUP PO PRN (18:00)
[2024-12-30] MEDS ORDERED: GuaiFENesin/D-METHORPHAN [SUGAR-FREE] 200-20MG/10 ML SYRUP UDCUP PO PRN (18:00)
[2024-12-30] MEDS ORDERED: MAGNESIUM HYDROXIDE SUSPENSION 30 ML UDCUP PO PRN (18:00)
[2024-12-30] MEDS ORDERED: PROMETHAZINE HCL 25 MG TABLET PO PRN (18:00)
[2024-12-30] MEDS: OMEGA-3/DHA/EPA/FISH OIL 500 MG CAPSULE PO ONE (19:44)
[2024-12-30] MEDS: NITROFURANTOIN MONOHYD/M-CRYST 100 MG CAPSULE [MACROBID] PO SCH (20:35)
[2024-12-30 21:16] VITALS: BP 124/80; PULSE 77; RESP 18; TEMP 97.4; O2SAT 96
[2024-12-30] MEDS: DIVALPROEX SODIUM 500 MG ER TABLET PO SCH (21:43)
[2024-12-30] MEDS: ZOLPIDEM TARTRATE 10 MG TABLET PO PRN (21:44)
[2024-12-30] MEDS: MELATONIN 5 MG TABLET PO PRN (21:59)
[2024-12-30 23:30] VITALS: BP 124/82; PULSE 77; RESP 18; TEMP 97.4; O2SAT 96
[2024-12-31] MEDS: LOPERAMIDE HCL 2 MG CAPSULE PO PRN (06:59)
[2024-12-31 08:13] LABS: CHOL/HDL RATIO 2.7 (3.9-5.7); LDL CHOL (CALC.) 86.0 mg/dL (0-130)
[2024-12-31 08:31] VITALS: BP 117/81; PULSE 62; RESP 18; TEMP 98.7; O2SAT 97
[2024-12-31] MEDS: BENZTROPINE MESYLATE 0.5 MG TABLET PO SCH (09:18)
[2024-12-31] MEDS: EZETIMIBE 10 MG TABLET PO SCH (09:19)
[2024-12-31] MEDS: MONTELUKAST SODIUM 10 MG TABLET PO SCH (09:20)
[2024-12-31] MEDS: THIAMINE 100 MG TABLET PO SCH (09:22)
[2024-12-31] MEDS: MULTIVITAMINS WITH MINERALS, THERAPEUTIC TABLET PO SCH (09:22)
[2024-12-31] MEDS: FOLIC ACID 1 MG TABLET PO SCH (09:22)
[2024-12-31] MEDS: ACETAMINOPHEN 325 MG TABLET PO PRN (14:21)
[2024-12-31 20:28] VITALS: BP 119/83; PULSE 92; RESP 18; TEMP 98.4; O2SAT 97
[2025-01-01 04:22] VITALS: BP 140/78; PULSE 62; RESP 18; TEMP 98.5; O2SAT 96
[2025-01-01 09:59] VITALS: BP 114/74; PULSE 86; RESP 18; TEMP 98.8; O2SAT 97
[2025-01-01 18:39] VITALS: RESP 18
[2025-01-01 19:41] VITALS: RESP 19
[2025-01-01 21:11] VITALS: BP 128/69; PULSE 73; RESP 19; O2SAT 97
[2025-01-02] VITALS (13 sets, daily range): BP systolic 90–116; BP diastolic 62–74; PULSE 68–85; RESP 16–19; TEMP 96.8–98.7; O2SAT 76–99
[2025-01-02] MEDS: LACTOBACILLUS ACIDOPHILUS/BULGARICUS TABLET PO SCH (09:05)
[2025-01-02] MEDS ORDERED: PARO10TA71 PO (17:59)
[2025-01-02] MEDS ORDERED: RISP-32 PO (17:59)
[2025-01-03 06:46] VITALS: BP 102/70; PULSE 73; RESP 19; TEMP 98.7; O2SAT 99
[2025-01-03 07:05] LABS: VALPROIC ACID 31.0 mcg/mL (50-100)
[2025-01-03 08:05] VITALS: BP 118/86; PULSE 94; RESP 18; TEMP 97.5; O2SAT 99
[2025-01-03 11:11] VITALS: BP 118/86; PULSE 94; RESP 18; TEMP 97.5; O2SAT 99
== END 2025-01-03 14:20 | DRG 885 ==
LOC: EMS 11:39 → 3EX 16:26
PROVIDERS: ADMIT Psychiatry & Neurology Psychiatry; ATTEND Psychiatry & Neurology Psychiatry
PROC: GZ58ZZZ Individual Psychotherapy, Cognitive-Behavioral (ICD-10-PCS; 2024-12-30)
PROC: GZ56ZZZ Individual Psychotherapy, Supportive (ICD-10-PCS; 2025-01-02)
PROC: GZHZZZZ Group Psychotherapy (ICD-10-PCS; principal; 2025-01-03)
DX: F25.9 Schizoaffective disorder, unspecified (principal); I10 Essential (primary) hypertension; F31.9 Bipolar disorder, unspecified; E78.5 Hyperlipidemia, unspecified; Z20.822 Contact with and (suspected) exposure to COVID-19; K21.9 Gastro-esophageal reflux disease without esophagitis; H54.8 Legal blindness, as defined in USA; F41.9 Anxiety disorder, unspecified; Z63.9 Problem related to primary support group, unspecified; Z59.9 Problem related to housing and economic circumstances, unspecified; Z65.3 Problems related to other legal circumstances; Z55.9 Problems related to education and literacy, unspecified; Z87.891 Personal history of nicotine dependence
CPT/HCPCS: 70450; 80048; 80061; 80156; 80164; 80307; 81001; 83036; 84439; 84443; 85025; 87077; 87081; 87086; 87186; 99285; G0378; G0480